=== PATIENT | male | born 1970 | race Caucasian/White ===

== ENCOUNTER 2025-03-11 12:52 | Outpatient (OUT) | payer BC, SELFPAY ==
--- OUTSIDE RECORDS SUMMARY | 2025-03-03 09:12 | XMS_ITS | Continuity of Care Document ---
Author Organization [facility] Address [address] [place] [address] Phone Care Team Providers [employer] Paraprofessional Name Role Phone Melissa Neil DO Primary Care Provider [phone] Melissa Neil DO Attending Provider Jerry Lam MD Attending Provider [phone] Jg Higgins MD Emergency Provider Lex Cristina MD Admit Provider [phone] Sadia Shahid MD Other Provider Lesley Castillo Attending Provider [phone] Lesley Castillo Other Provider Care Teams Patient Care Team Team Status: Active Member Role/Relationship Status Dates Melissa Neil DO Primary Care Provider Active Visit Care Team Team Status: Inactive Member Role/Relationship Status Dates Melissa Neil DO Primary Care Provider Active S tart: January 17, 2025 End: January 17, 2025Jepatricia Neil DOAttending ProviderActiveStart: January 17, 2025 End: January 17, 2025 Visit Care Team Team Status: Inactive Member Role/Relationship Status Dates Melissa Neil DO Primary Care Provider Active S tart: February 26, 2025 End: February 26, 2025Melissa Neil DOAttending ProviderActiveStart: February 26, 2025 End: February 26, 2025 Visit Care Team Team Status: Inactive Member Role/Relationship Status Dates Jerry Lam MD Attending Provider Active Start: February 28, 2025 End: February 28, 2025[facility] Care ProviderActiveStart: February 28, 2025 End: February 28, 2025 Patient Care Team Team Status: Active Member Role/Relationship Status Dates Melissa Neil DO Primary Care Provider Active S tart: February 28, 2025 Jg Higgins MDEmergency ProviderActiveStart: February 28, 2025 Lex Cristina MDAdmit ProviderActiveStart: February 28, 2025 Sadia Shahid MDOther ProviderActiveStart: February 28, 2025 Charli Castillo MDAttending ProviderActiveStart: February 28, 2025 Jessica Shearer ProviderActiveStart: February 28, 2025 Chief Complaint and Reason for Visit Chief Complaint Admit Date 3M January 17, 2025 2: 26pm 1M February 26, 2025 2:53pm 6 mo flora 930a February 28, 2025 8:50am sent by February 28, 2025 9:17pm Reason for Visit Admit Date Essential (primary) hypertension January 17, 2025 2:26pm Inguinal hernia January 17, 2025 2: 26pm Insomnia, unspecified January 17, 2025 2:26pm Nausea and vomiting January 17, 2025 2: 26pm Opioid abuse, uncomplicated January 17, 2025 2:26pm PAD (peripheral artery disease) January 17, 2025 2:26pm Tobacco use January 17, 2025 2: 26pm DONAVON (acute kidney injury) February 26, 2025 2:53pm Anemia February 26, 2025 2:53pm Essential (primary) hypertension Novembe r 2024 2:53pm Gastritis February 26, 2025 2:53pm Insomnia, unspecified February 26 2:53pm Opioid abuse, uncomplicated February 2:53pm PAD (peripheral artery disease) February 26, 2025 2:53pm PAD (peripheral artery disease) February 28, 2025 8:50am Acute renal failure February 28, 2025 9:17pm DONAVON (acute kidney injury) February 28, 2025 9:17pm Anemia February 28, 2025 9:17pm Essential (primary) hypertension Novembe r 2024 9:17pm Hyponatremia February 28, 2025 9:17pm Metabolic acidosis February 28, 2025 9:17pm Opioid abuse, uncomplicated February 9:17pm PAD (peripheral artery disease) February 28, 2025 9:17pm Tobacco use February 28, 2025 9:17pm Reason for Referral Type Reason(s) Provider Provider Contact Information P rovider Address Start Date in 3 to 5 days for repeat blood workCall office on Tuesday to schedule follow-up with your Primary Care Provider within 3-5 days of discharge.Mario Polo Phone: [phone] [facility] [id number] 3 to 5 days for repeat blood workToni Shearer Phone: [phone] [place] [address] Allergies, Adverse Reactions, Alerts Allergen Type Severity Reaction Last Updated Verified Status No Known Allergies Allergy Unknown February 28, 2025 5:46pmYesActive Social History Smoking Status Status Start Date End Date Date of Observa tion Smokes tobacco daily (finding) March 01, 2025 9:29am Observation Status Observation Response Date of Response Legal Sex [facility] (finding) [facility] Family History Relationship Condition Age at Onset Recorded Date/T mamta mother Myocardial infarction Unknown Rheumatoid arthritisUnknownfatherGlaucomaUnknownbrotherHistory of heart surgery UnknownCerebrovascular accident (CVA)UnknownMyocardial infarctionUnknown HypertensionUnknown Problems Active Problems Problem Diagnosis/Recorded Date Onset Date Status C omments DONAVON (acute kidney injury) February 26, 2025 3:20pm Unkno wn Active Encounter for screening for depressionApruary 2024 9:55amUnknownActive Insomnia, unspecifiedJanuary 2024 9:55amUnknownActiveAcute recurrent maxillary sinusitisJanuary 2024 9:55amFebruary 2018ActiveHistory of fallingJanuary 2024 9:55amUnknownActiveOpioid abuse, uncomplicatedApruary 2024 9:55amUnknownActiveLow back pain, unspecifiedJanuary 2024 9:55amUnknownActiveNoninfective gastroenteritis and colitis, unspecifiedJanuary 2024 9:55amUnknownActiveAcute renal failureNovember 2024 8:46pm UnknownActiveAnemiaNovember 2024 3:19pmUnknownActiveAnxiety disorder, unspecifiedJanuary 2024 9:55amJanuary 2015ActiveEncounter for therapeutic drug level monitoringJanuary 2024 9:55amUnknownActiveGastritis February 26, 2025 3:19pmUnknownActiveHyponatremiaNovember 2024 10:21am UnknownActivePostoperative painFebruary 2024 2:16pmUnknownActive Claudication of left lower extremityJanuary 2024 10:44amUnknownActive Peripheral vascular disease, unspecifiedJanuary 2024 9:55amUnknownActive Essential (primary) hypertensionJanuary 2024 9:55amUnknownActivePAD (peripheral artery disease)May 23, 2024 1:46pmUnknownActivePain in right kneeJanuary 2024 9:55amUnknownActivePain in right shoulderJanuary 2024 9:55amFebruary 2017ActivePain in left wristJanuary 2024 9:55am UnknownActiveTobacco useJanuary 2024 9:55amApril 2016ActiveMetabolic acidosisNovember 2024 10:22amUnknownActiveNausea and vomitingOctober 2024 2:26pmUnknownActiveInguinal herniaJanuary 2024 11:16amUnknownActive rightInactive/Resolved Problems Problem Diagnosis/Recorded Date Onset Date Status C omments Personal history of (healed) traumatic fracture May 02, 2024 9:55am Unknown Resolved Other chronic painJanuary 2024 9:55amUnknownResolvedClaudication of right lower extremityJanuary 2024 10:44amUnknownResolved Medications Medication Status Dose Units Route Directions Qty Days Refills S tart Date Stop Date End Date Reason(s) Instructions Adherence Morphine (Ms Contin) 15 mg tablet extended release Discontinued 15 MG PO Every 12 hours 12 6 0 [facility] 2024July 25, 2024 9:10amPostoperative pain Other acute postprocedural painClopidogrel 75 mg tabletActive0.ROUTE.HENFYOS502 February 25, 2025 1:34pmTAKE 1 TABLET BY MOUTH EVERY DAYUnknownCholecalciferol (Vitamin D3) (Vitamin D3) 25 mcg (1,000 unit) chgxlsRpxmmy21VFSFPFzhfk morning May 08, 2024 12:00amUnknownIbuprofen 200 mg iovoslMpklgbdmfynt832 - 800MG PODaily as needed for painMay 08, 2024 12:00amNoveer 2024 3:00pm Buprenorphine-Naloxone (Suboxone) 8-2 mg filmActive1.75FILMSUBLINGUALEvery morningMay 08, 2024 12:[address] 1 strip/tab under (each) side of tongue UnknownAtorvastatin 40 mg SinbfaSuhyaw49EWROGtpzq oezkpbq95236Ehrctrzt 2024 12:00amUnknownClopidogrel 75 mg KqyrjuJxupylxseijt26UZWAQxdhx27787Uxggjocz 2024 12:00amNovember 2024 1:34pmAspirin 81 mg Tablet,Delayed Release (Dr/Ec)Zfrsci41PUDRQkbdl89157Pvfbnnml 2024 12:00amUnknownDocusate Sodium 100 mg EwluaaxMakzlsytkxzw141MPPANcjqq pvpco87045Kbnkjnpp 2024 12:00am June 13, 2024 11:28amMorphine (Ms Contin) 15 mg tablet extended release Rjjkxamnefpl23WRXAKyotk 12 kvkle9993Liljcttn 2024[facility] 2024 11:28am Postoperative pain Other acute postprocedural painAcamprosate 333 mg tablet,delayed release (DR/EC) Gecodkujzbpz830MJUEHnxnz times dailyFebruary 28, 2025 12:00amNoveer 2024 9:41pmTrazodone 50 mg fstoxpAsdjze12ZLWLMqqryhlUdjklzjc 20th, 2025 12:00am UnknownLisinopril-Hydrochlorothiazide 10-12.5 mg xsoaplMjviackrqmbn6RNDLJKsxmj morningJanuary 2024 12:00amNovember 2024 12:17pmOxycodone (Roxicodone) 15 mg sibgahNsajkagmohme14NFBHUeycz daily as needed for zxdf5522 June 18pril 2024 9:10amPostoperative pain Other acute postprocedural painTrazodone 50 mg vfnptuHwwaeblhvfrd27IYBCLkjys at bedtime as neededSept2024 11:00pmNov2024 6:43pm Gabapentin 100 mg bzsrjinHxrwjl998ZCXCUgobx at gzixrnw745Bgnvudh 8th, 2025 11:00pmUnknownOndansetron 4 mg tablet,gpetxathrpjomxAahmlppcjffv6CSANOxvqh 8 hours as needed for nausea and fzuhizcx273Ozdzzvr 8th, 2025 11:00pmFebruary 26, 2025 3:01pmPantoprazole (Protonix) 40 mg tablet,delayed release (DR/EC) Pbzffbagqhrv60JAQHKesvh76354Fuokxyw 8th, 2025 11:00pmFebruary 26, 2025 3:01pm Pantoprazole (Protonix) 40 mg tablet,delayed release (DR/EC)Ckufqn59GNTYZvwha unggn1906Frzxoqmu2024 12:00amUnknown Medical Equipment Device Date Implanted Device Details Synthetic vascular graft May 22, 2024 HOMERO : [id number] Issuing Agency: [facility] Device Id: [id number] Expiration Date: 2028-08-08 Lot Number: [id number] Serial Number: [id number] peripheral artery stent, bare-metalFebruary 2024UDI: ()[id number] Issuing Agency: 1 Device Id: [id number] Expiration Date: 2025-09-25 Serial Number: [id number] peripheral artery stent, bare-metalFebruary 2024UDI: [id number] Issuing Agency: [facility] Device Id: [id number] Expiration Date: 2026-04-11 Serial Number: [id number] Vital Signs Vital Reading Result Reference Range Collection Date/Time Height 70 [in_i] January 17, 2025 1:[address]Zommzi52.[address] [facility] 20[facility] 1:31pmHeart Blkm744 /min 60-100January 17, 2025 1:31pmRespiratory rate20 /ird96-31Uyimvfr 2024 1:31pmOxygen saturation by Pulse uuycwagq17 %95-100[facility]2024 1:31pmBP Jpoqyngt798 mm[Hg]100-140January 17, 2025 1:31pmBP Gaonjdffh87 mm[Hg]60-100 January 17, 2025 1:31pmBMI (Body Mass Index)25.4 kg/k4Lcibnhy 2024 1:31pm Lebhiv67 [in_i]February 26, 2025 2:92caKargea02.73 kg[facility]2024 2:56pmHeart Rate87 /bxu31-090QdadhrdiFebruary 26, 2025 2:56pmRespiratory rate20 /min 12-24February 26, 2025 2:56pmOxygen saturation by Pulse qvdojhhn58 %95-100 February 26, 2025 2:56pmBP Vrlucqbt805 mm[Hg]100-140February 26, 2025 2:56pm BP Mxqhkdzjv61 mm[Hg]60-100February 26, 2025 2:56pmBMI (Body Mass Index)25.5 kg/y2Ggsjkopj2024 2:57kkNvuzrh90 [in_i]February 28, 2025 9:37amWeight 80.00 kgFebruary 28, 2025 9:37amBody Eygfejvaocg78.8 [degF]97.6-99.0February 28, 2025 9:37amHeart Rate98 /bki70-608HfrfgeduFebruary 28, 2025 9:37amRespiratory rate16 /gae30-67Bjjbbjvv2024 9:37amOxygen saturation by Pulse rwcrrgna96 %95-100February 28, 2025 9:37amBP Zchuzbyy85 mm[Hg]100-140February 28, 2025 9:37amBP Ddqdtaesz18 mm[Hg]60-100February 28, 2025 9:37amBMI (Body Mass Index) 25.2 kg/u6EczmkpnaFebruary 28, 2025 9:92viXzuogf99 [in_i]February 28, 2025 10:17pm Ggiuwy33.00 kgMarch 03, 2025 6:00amBody Quwpglpxogh69.2 [degF]97.6-99.0 March 03, 2025 11:58amHeart Rate84 /gzx05-288HwzsylmoMarch 03, 2025 11:58am Respiratory rate20 /syu32-78KwrpocmwMarch 03, 2025 11:58amOxygen saturation by Pulse zoysaenj16 %95-100March 03, 2025 11:58amBP Oycgmswt758 mm[Hg]100-140 March 03, 2025 11:58amBP Duqqzpovc41 mm[Hg]60-100March 03, 2025 11:58am Advance Directives Advance Directive Response Recorded Date/ Time Advance Directives No August 27 12:38pm Insurance Providers Guarantor Subhash Vieira Address [address] [facility] [address]Vszhwty Info.Home Phone: Coverage Status Update:2025 Payer Group Member ID Coverage Type Subscriber Relationship to Subscriber Effective Date Expiration Date Shanna SANON Id: [id number] Dority Id: [id number] [address] [place] [address] Home Phone: Encounters Encounter Location(s) Arrival/Admit Date Discharge/Departure Date Discharge/Departure Disposition Provider(s) Departed Physician/ Provider Office Visit -[facility] [place] [place] January 17, 2025 2:26pm January 17, 2025 3:17pm Discharged to home care or self care (routine discharge) Melissa Neil DO Departed Physician/ Provider Office Visit -[facility] [place] [facility] [place] February 26, 2025 2:53pm February 26, 2025 3:34pm Discharged to home care or self care (routine discharge) Melissa Neil DO Departed Physician/ Provider [facility] February 28, 2025 8:50am February 28, 2025 11:04am Discharged to home care or self care (routine discharge) Jerry Lam MD [facility]-patient / [facility] No vember 2024 9:17pm Charli Castillo MD Recent Diagnosis Onset Date Admit Date Essential (primary) hypertension Unknown January 17, 2025 2:26pm Inguinal hernia Unknown January 17 2:26pm Insomnia, unspecified Unknown January 2:26pm Nausea and vomiting Unknown January 17, 2025 2:26pm Opioid abuse, uncomplicated Unknown Octo brittney 2024 2:26pm PAD (peripheral artery disease) Unknown January 17, 2025 2:26pm Tobacco use July 22, 2016 January 17 2:26pm DONAVON (acute kidney injury) Unknown Novemb er 2024 2:53pm Anemia Unknown February 26, 2 025 2:53pm Essential (primary) hypertension Unknown February 26, 2025 2:53pm Gastritis Unknown February 26, 2 025 2:53pm Insomnia, unspecified Unknown February 092024 2:53pm Opioid abuse, uncomplicated Unknown Nove mber 2024 2:53pm PAD (peripheral artery disease) Unknown February 26, 2025 2:53pm PAD (peripheral artery disease) Unknown February 28, 2025 8:50am Acute renal failure Unknown February 9:17pm DONAVON (acute kidney injury) Unknown [facility] 9[facility]17[facility] Anemia Unknown February 28, 2 025 9:17pm Essential (primary) hypertension Unknown February 28, 2025 9:17pm Hyponatremia Unknown February 28, 2 025 9:17pm Metabolic acidosis Unknown February 9:17pm Opioid abuse, uncomplicated Unknown Nove mber 2024 9:17pm PAD (peripheral artery disease) Unknown February 28, 2025 9:17pm Tobacco use July 22, 2016 February 28, 2025 9:17pm Assessments Diagnosis Onset Date Resolution Status Admit Date Essential (primary) hypertension acuteOctober 2024 2:26pmInguinal herniaacuteOctober 2024 2:26pm Insomnia, unspecifiedacuteOctober 2024 2:26pmNausea and vomitingacute January 17, 2025 2:26pmOpioid abuse, uncomplicatedacuteJanuary 17, 2025 2:26pm PAD (peripheral artery disease)acuteJanuary 17, 2025 2:26pmTobacco useApril 2016acuteOct2024 2:26pmAKI (acute kidney injury)acuteNov2024 2:53pmAnemiaacuteNov2024 2:53pmEssential (primary) hypertensionacuteFebruary 26, 2025 2:53pmGastritisacuteNov2024 2:53pmInsomnia, unspecifiedacuteFebruary 26, 2025 2:53pmOpioid abuse, uncomplicatedacuteFebruary 26, 2025 2:53pmPAD (peripheral artery disease)acute February 26, 2025 2:53pmPAD (peripheral artery disease)acuteFebruary 28, 2025 8:50amAcute renal failureacuteFebruary 28, 2025 9:17pmAKI (acute kidney injury)acuteFebruary 28, 2025 9:17pmAnemiaacuteFebruary 28, 2025 9:17pm Essential (primary) hypertensionacuteFebruary 28, 2025 9:17pmHyponatremiaacute February 28, 2025 9:17pmMetabolic acidosisacuteFebruary 28, 2025 9:17pm Opioid abuse, uncomplicatedacuteFebruary 28, 2025 9:17pmPAD (peripheral artery disease)acuteFebruary 28, 2025 9:17pmTobacco useApril 2016acuteFebruary 28, 2025 9:17pm Plan of Treatment [facility] 11:08amI reviewed the arterial studies surveillance studies today. 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 There is no flow. Patient does have collateral flow to the foot. He does not have critical limb ischemia at this time. This patient is at high risk for any future interventions. I explained to him today. I recommend conservative nonoperative management with risk factor modification smoking cessation and aggressive exercise regimen. He agrees to this. I will see him back in 6 months. I did explain to him that if he develop critical limb ischemia then we would be forced to intervene in order to prevent limb loss. He is aware of this. The patient was also told to go to the ER today by his family physician and nurse practitioner. Apparently they have found anemia. They think he is bleeding from a GI source. He he agrees to go to the ER later on today after he goes and gets his paycheck from work. I agree with this, obviously. Author Melissa Neil [facility] CenterAuthoredOctober 2024 2:32pmcontinue aspirin and plavix and atorvastatin no desire to quit at this time. continue trazodone as needed stable on the lisinopril/hctz currently being managed at [facility]. Doing well and has been on it now 3 years. plans for surgery next month Will place on zofran as needed and daily Protonix; I think it's polypharmacy causing acute gastritis, discussed with him how to take medications; also concerned about acute gastritis with motrin and aspirin and plavix. Please cut down the motrin. Discussed for him to go to ER if every blood in vomit or stool, fevers or pain becomes severe. Start Gabapentin, discussed how to take all meds; go to ER with worsening pain or symptoms. Return to clinic 1 month. Author Melissa Neil [facility] CenterAuthoredNovember 2024 3:42pmtaking statin, plavix and aspirin- follows with Vascular surgery follows at [facility]; has been compliant stable on lisinopril/hctz takes trazodone as needed recheck CBC (last hb 11.3), iron, TIBC, Ferritin, VB12, folate; EGD and possible colonoscopy (referral to GI) Has stopped ibuprofen; still takes aspirin and plavix; will place on protonix 40mg BID; referral to GI for EGD. now with acute anemia; concern for possible bleeding ulcer. recheck BMP after stopping NSAIDs; if still elevated will need urine studies and renal ultrasound. Referral to GI; further work up of DONAVON and anemia; placed on protonix BID; return to clinic 1 month Future Tests Future scheduled test information is unavailable Pending Tests Test Name Ordered Date Scheduled Date Renal Function Panel March 03, 2025 12:20pm 5 Days Renal Function Panel March 01, 2025 8:34am March 04, 2025 5:00am Renal Function Panel March 01, 2025 8:34am March 05, 2025 5:00am Future Visits Future appointment information is unavailable Future Procedures Procedure Name Ordered Date Scheduled Date Admit Status Order February 28, 2025 9:17pm No vember 2024 9:17pm Hemogram CBC Without Diff March 01, 2025 8: 34am March 04, 2025 5:00am Code Status February 28, 2025 10:50pm Novpadmini mb 2024 10:50pm Discharge Order March 03, 2025 12:13pm Janak webster 2024 12:13pm Consult to Nephrology February 28, 2025 10:50p m February 28, 2025 10:50pm Vitamin B12 February 26, 2025 3:30pm [facility] 3:23pmComplete Blood Count Auto Diff February 26, 2025 3:23pmIron and TIBC ProfileNovb[facility] 2024 3:27pm FerritinNovbanner [facility] medical [facility] 2024 3:27pmFolateNovbanner [facility] medical [facility] 2024 3:30pm Future Medications Future medication information is unavailable Patient Instructions Instruction Admit Date Know your Meds February 28, 2025 9:17pm
--- OUTSIDE RECORDS SUMMARY | 2025-03-11 13:00 | XMS_ITS | Clinical Summary ---
Author Organization [facility] Address [address] [place] [address] Care Team Providers Care Spindle Tester Name Role Phone Hermilo Borrero MD Primary Care Provider [phone] Yessi Luna FRANCHISE CONSULTANT Unavailable [phone] Allergies No known active allergies Medications MedicationSigDispense QuantityRefillsLast FilledStart DateEnd DateStatus Buprenorphine HCl-Naloxone HCl (Suboxone) 8-2 MG SL film 5Active traZODone (Desyrel) 50 MG tablet Take 50-100 mg by mouth at ownsunr66/03/2024Active nicotine (Nicoderm, Step 3) 7 MG/24HR patch Indications:Nicotine dependence, cigarettes, uncomplicatedPlace 1 patch over 24 hours on the skin 1 (one) time each day at the same time 14 patch 5Active atorvastatin (Lipitor) 40 MG tablet Take 40 mg by mouth in the iqhrcbo41/12/2025Active clopidogrel (Plavix) 75 MG tablet Take 75 mg by mouth Daily5Active nicotine (Nicoderm, Step 2) 14 MG/24HR patch Indications:Nicotine dependence, cigarettes, uncomplicatedPlace 1 patch over 24 hours on the skin 1 (one) time each day at the same time 30 patch 5Active lisinopril-hydroCHLOROthiazide 10-12.5 MG tablet Indications:Primary hypertensionTAKE 1 TABLET BY MOUTH EVERY DAY 90 tablet 5Active Active Problems ProblemNoted DateDiagnosed DatePAD (peripheral artery disease)07/16/2024 Assessment & Plan (10/22/2024 6:47 PM EDT): On statin, plavix Continue with vascular Assessment & Plan (07/16/2024 5:30 PM EDT): On statin, plavix Substance use07/16/2024 Assessment & Plan (07/16/2024 7:39 AM EDT): Currently taking suboxone Cont with [facility] Cigarette nicotine dependence without nmhssaqopqpo09/07/2025 Assessment & Plan (07/16/2024 4:05 PM EDT): Prior to vascular surgery 0.5-1ppd, now is doing 4 cigs daily Patch is 14mg patch Right inguinal auurua0904/25/2024 Assessment & Plan (10/22/2024 6:48 PM EDT): Referred to Gen Surgeon Assessment & Plan (07/16/2024 5:34 PM EDT): 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 He is not having a lot of hernia pain, he is having normal bowel movements and urination At this time we will monitor, no consult at this time He is aware of red flag sxs to monitor Abnormal ultrasound of gafwak6204/25/2024Iliac artery occlusion, right04/25/2024 Primary jgvtpwkfelay30/07/2025 Assessment & Plan (10/22/2024 6:47 PM EDT): Please check blood pressure daily and record DASH diet Limit caffeine Take medication as directed Contact office if chest pain, pressure, dizziness, shortness of breath, swelling legs Recommend slow position changes Current meds: lisinopril-hydrochlorothiazide Assessment & Plan (07/16/2024 5:30 PM EDT): Please check blood pressure daily and record DASH diet Limit caffeine Take medication as directed Contact office if chest pain, pressure, dizziness, shortness of breath, swelling legs Recommend slow position changes Current meds: lisinopril-hydrochlorothiazide Assessment & Plan (04/17/2024 4:06 PM EST): Follows at [facility] there placed pt on Losartan- hydrochlorothiazide for elevated BP readings for several months. BP in office today 116/66. Pt reports he has been checking BP at home since initiating medications.Averages have been less than 130/80. Pt denies any adverse reactions. Cough, swelling in legs or feet. Will order labs today, Gave patient BP log and advised to continue checking BP at home and bring BPlog back to next OV. Encounter for wellness examination in adult04/17/2024 Assessment & Plan (04/17/2024 4:06 PM EST): I have reviewed Ht/Wt/BMI, I have reviewed recommended vaccines for patient's age, as well as all recommended screenings I have reviewed available care everywhere notes as well. I have recommended eating a balanced diet,as well as activity as chronic conditions allow It is recommended that the patient have a yearly eye exam, as well as twice a year dental exams Fu in this office for wellness on a yearly basis Diet: Eat three meals per day. Breakfast, lunch, and dinner. Avoid snacking. Avoid eating after 5/6pm. Daily protein GOAL 35% of your intake; 30g per meal. Daily calorie GOAL 1,800-2,000 per day. Consider tracking your food intake on MyFtinessPal or LoseIt Water: Increase water intake; GOAL 64-80oz of water per day. Exercise: Increase activity. GOAL 30 minutes, 5 days per week. START SLOW. Start with 5 minutes, 5 days per week. Then increase to 10 days, 5 days per week. Continue to increase until you reach the goal. Increase steps; GOAL 10,000 steps per day. Be sure to get adequate sleep; GOAL 6-8 hours of sleep per night. Mmmokme2204/17/2024Screening for malignant neoplasm of colon04/17/2024 Assessment & Plan (07/16/2024 4:28 PM EDT): Colon cancer screening options were discussed with patient, as well as why colon cancer screening is indicated. Options are Colonoscopy: direct visualization, every 10 years (unless indicated more frequently), risks and benefits were discussed Cologuard: every 3 years, risks and benefits were discussed , contraindications were discussed (family hx of colon cancer, colon polyps) Patient has elected to: colguard Resolved Problems ProblemNoted DateDiagnosed DateResolved DateScreening for hyperlipidemia Screening for diabetes [id number] Family History Medical HistoryRelationNameCommentsHypertensionMotherMomRelationNameStatus CommentsMotherMomAlive Social History Tobacco UseTypesPacks/DayYears UsedDateSmoking Tobacco: Every DofSlmzevpvsf531 Smokeless Tobacco: Never Tobacco Cessation:Ready to Q uit: Not Asked; Counseling Given: Not Answered Alcohol UseStandard Drinks/WeekCommentsYes0 (1 standard drink = 0.6 oz pure alcohol)Sex and Gender InformationValueDate RecordedSex Assigned at BirthNot on fileLegal BlnVipj8006/23/2022 6:43 PM EDTGender IdentityNot on fileSexual OrientationNot on file Last Filed Vital Signs Vital SignReadingTime TakenCommentsBlood Zxtulkpb762/7807 2:53 PM EDT Envdh740010/22/2024 2:53 PM HFPCmavwxpyuje52.6 ??C (97.8 ??F)10/22/2024 2:53 PM EDTRespiratory Iehp291610/22/2024 2:53 PM EDTOxygen Pjyctygmwg30%10/22/2024 2:53 PM EDTInhaled Oxygen Concentration--Klhcni57 kg (172 lb)10/22/2024 2:53 PM EDT Ymkmqf249.8 cm (5' 10 )09/06/2024 3:12 PM EDTBody Mass Index24.68009/06/2024 3:12 PM EDT Plan of Treatment Not on file Insurance Care Teams Team MemberRelationshipSpecialtyStart DateEnd Date Hermilo Borrero MD [address] [place] [address] PCP - GeneralFamily Bvoddzdm58/4/24 Yessi Luna NP Nurse Practitionermi Jhqeqnef12/4/24
[2025-03-11 13:46] LABS: Albumin Level 3.0 g/dL (3.4-5.0); Anion Gap 14.8; Blood Urea Nitrogen 18.0 mg/dL (7.0-18.0); Calcium 9.0 mg/dL (8.5-10.1); Carbon Dioxide 21.1 mmol/L (21.0-32.0); Chloride 106 mmol/L (98-107); Estimated GFR (African America 57 (>=60 mL/min/1.73m^2); Estimated GFR (Non-African Ame 47 (>=60 mL/min/1.73m^2); Glucose 119 mg/dL (74-106); Potassium 3.9 mmol/L (3.5-5.1); Sodium 138 mmol/L (136-145)
== END 2025-03-11 12:53 | disposition home or self-care (01) ==
LOC: LAB 12:57
PROVIDERS: PCP Family Medicine; Visit Provider Internal Medicine
DX: N17.9 Acute kidney failure, unspecified (principal)
CPT/HCPCS: 36415; 80069

== ENCOUNTER 2025-04-02 14:13 | Outpatient (OUT) | payer BC, SELFPAY ==
--- OUTSIDE RECORDS SUMMARY | 2025-03-19 10:11 | XMS_ITS | Continuity of Care Document ---
Author Organization [facility] Address [address] [place] [address] Phone Care Team Providers Care Song Writer Name Role Phone Melissa Neil DO Primary Care Provider Melissa Neil DO Attending Provider [phone] Jerry Lam MD Attending Provider [phone] Jg Higgins MD Emergency Provider Lex Cristina MD Admit Provider Sadia Shahid MD Other Provider Lesley Castillo Attending Provider [phone] Lesley Castillo Other Provider Funmi Elliott Attending Provider Unavailable Care Teams Patient Care Team Team Status: [...] Start: February 28, 2025 End: February 28, 2025Jepatricia Neil , DOPrimary Care ProviderActiveStart: February 28, 2025 End: February 28, 2025 Visit Care Team Team Status: Active Member Role/Relationship Status Dates Melissa Jolynn , DO Primary Care Provider Active S tart: February 28, 2025 Jg Higgins MDEmergency ProviderActiveStart: February 28, 2025 Lex Cristina MDAdmit ProviderActiveStart: February 28, 2025 Sadia Shahid MDOther ProviderActiveStart: February 28, 2025 Cecilia Shearer ProviderActiveStart: February 28, 2025 Jessica Shearer ProviderActiveStart: February 28, 2025 Visit Care Team Team Status: Active Member Role/Relationship Status Dates Melissapatricia Neil , DO Primary Care Provider Active S tart: March 05, 2025 Funmi Humphries ProviderActiveStart: March 05, 2025 Visit Care Team Team Status: Active Member Role/Relationship Status Dates Melissa Jolynn , DO Primary Care Provider Active S tart: March 11, 2025 Cecilia Shearer ProviderActiveStart: March 11, 2025 Visit Care Team Team Status: Inactive Member Role/Relationship Status Dates Melissa Jolynn , DO Primary Care Provider Active S tart: March 14, 2025 End: March 14bdian Castillo MDAttending ProviderActiveStart: March 14, 2025 End: March 14, 2025 Patient Care Team Team Status: Inactive Member Role/Relationship Status Dates Melissa Jolynn , DO Primary Care Provider Active S tart: March 19, 2025 End: March 19, 2025Melissa Jolynn , DOAttending ProviderActiveStart: March 19, 2025 End: March 19, 2025 Chief Complaint and Reason for Visit Chief Complaint Admit Date 3M January 17, 2025 2: 26pm 1M February 26, 2025 2:53pm 6 mo flora 930a February 28, 2025 8:50am sent by February 28, 2025 9:17pm Amb Documentation March 05, 2025 1:00pm Renal F/U [facility] March 14, 2025 1 0:54am [facility] f/u-renal failure Dec ember 2024 2:30pm Reason for Visit Admit Date Essential (primary) [...] 26, 2025 2:53pm Essential (primary) hypertension Novembe 2024 2:53pm Gastritis February 26, 2025 2:53pm Insomnia, unspecified February 26 2:53pm Opioid abuse, uncomplicated February 2:53pm PAD (peripheral artery disease) February 26, 2025 2:53pm PAD (peripheral artery disease) February 28, 2025 8:50am DONAVON (acute kidney injury) February 28, 2025 9:17pm Anemia February 28, 2025 9:17pm Essential (primary) hypertension Novembe 2024 9:17pm Opioid abuse, uncomplicated February 9:17pm PAD (peripheral artery disease) February 28, 2025 9:17pm Tobacco use February 28, 2025 9:17pm Acute renal failure February 28, 2025 9:17pm Hyponatremia February 28, 2025 9:17pm Metabolic acidosis February 28, 2025 9:17pm B12 deficiency March 14, 2025 1 0:54am Essential (primary) hypertension Decembe r 2024 10:54am Iron deficiency anemia March 14 10:54am PAD (peripheral artery disease) March 14, 2025 10:54am Post-renal acute kidney injury March 14, 2025 10:54am B12 deficiency March 19, 2025 2 :30pm Inguinal hernia March 19, 2025 2 :30pm Iron deficiency anemia March 19 2:30pm Opioid abuse, uncomplicated March 2:30pm PAD (peripheral artery disease) March 19, 2025 2:30pm Post-renal acute kidney injury March 19, 2025 2:30pm Reason for Referral Type Reason(s) Provider Provider Contact Information Carri rand Address Start Date in 3 to 5 days for repeat blood workCall office on Tuesday to schedule follow-up with your Primary Care Provider within 3-5 days of discharge.Melissa Neil Mario Phone: [phone] [facility] [phone] 3 to 5 days for repeat blood workToni Shearer Phone: [phone] [place] [address] Allergies, Adverse Reactions, Alerts Allergen Type Severity Reaction Last Updated Verified Status No Known Allergies Allergy Unknown March 19, 2025 2:33pmYesActive Social History Smoking Status Status Start Date End Date Date of Observa tion Smokes tobacco daily (finding) March 14, 2025 11:00am Observation Status Observation Response Date of Response Legal Sex [facility] (finding) [facility] 1970 Family History Relationship Condition Age at Onset Recorded Date/T mamta mother Myocardial infarction Unknown Rheumatoid arthritisUnknownfatherGlaucomaUnknownbrotherHistory of heart surgery UnknownCerebrovascular accident (CVA)UnknownMyocardial infarctionUnknown HypertensionUnknown Problems Active Problems Problem Diagnosis/Recorded Date Onset Date Status C omments DONAVON (acute kidney injury) February 26, 2025 3:20pm Unkno wn Active Encounter for screening for depressionJanuary 2024 9:55amUnknownActive Post-renal acute kidney injuryDecember 2024 11:15amUnknownActiveInsomnia, unspecifiedJanuary 2024 9:55amUnknownActiveAcute recurrent maxillary sinusitisJanuary 2024 9:55amFebruary 2018ActiveHistory of falling May 02, 2024 9:55amUnknownActiveOpioid abuse, uncomplicatedJanuary 2024 9:55amUnknownActiveLow back pain, unspecifiedJanuary 2024 9:55am UnknownActiveNoninfective gastroenteritis and colitis, unspecifiedJanuary 2024 9:80wiPmhuzcfWjxabgJ36 deficiencyDecember 2024 11:15amUnknownActive AnemiaNovember 2024 3:19pmUnknownActiveAnxiety disorder, unspecified May 02, 2024 9:55amJanuary 2015ActiveEncounter for therapeutic drug level monitoringJanuary 2024 9:55amUnknownActiveGastritisNovember 2024 3:19pmUnknownActivePostoperative painFebruary 2024 2:16pmUnknown ActiveClaudication of left lower extremityJanuary 2024 10:44amUnknown ActivePeripheral vascular disease, unspecifiedJanuary 2024 9:55amUnknown ActiveEssential (primary) hypertensionJanuary 2024 9:55amUnknownActiveIron deficiency anemiaDecember 2024 11:15amUnknownActivePAD (peripheral artery disease)May 23, 2024 1:46pmUnknownActivePain in right kneeJanuary 2024 9:55amUnknownActivePain in right shoulderJanuary 2024 9:55amFebruary 2017ActivePain in left wristJanuary 2024 9:55amUnknownActiveTobacco useJanuary 2024 9:55amApril 2016ActiveNausea and vomitingOctober 2024 2:26pmUnknownActiveInguinal herniaJanuary 2024 11:16amUnknown ActiverightInactive/Resolved Problems Problem Diagnosis/Recorded Date Onset Date Status C omments Personal history of (healed) traumatic fracture May 02, 2024 9:55am Unknown Resolved Acute renal failureNovember 2024 8:46pmUnknownResolvedHyponatremiaNovember 2024 10:21amUnknownResolvedOther chronic painJanuary 2024 9:55am UnknownResolvedClaudication of right lower extremityJanuary 2024 10:44am UnknownResolvedMetabolic acidosisNovember 2024 10:22amUnknownResolved Medications Medication Status Dose Units Route Directions Qty Days Refills S tart Date Stop Date End Date Reason(s) Instructions Adherence Morphine (Ms Contin) 15 mg tablet extended release Discontinued 15 MG PO Every 12 hours 12 [address] [facility] 2024July 25, 2024 9:10amPostoperative pain Other acute postprocedural painClopidogrel 75 mg tabletActive0.ROUTE.QJGEYGM491 February 25, 2025 1:34pmTAKE 1 TABLET BY MOUTH EVERY DAYComplies with drug therapyHydrochlorothiazide 12.5 mg vobotpEpkcoxuszkfi15.9FWYFTuoeb088Lksavqzu 26th, 2025 12:00amDececobre [facility] 2024 2:34pmOn Hold: no edemaPotassium Chloride 20 mEq tablet extended jfnkfhuYpbsukksjbhe44COAVCReann538Hfevturu 26th, 2025 12:00amDececobre [facility] 2024 2:35pmOn Hold: NoneCholecalciferol (Vitamin D3) (Vitamin D3) 25 mcg (1,000 unit) mxvloiWteqtu83UQPBVSniqr morningJanuary 2024 12:00amComplies with drug therapyIbuprofen 200 mg lzomplYfqazrvfykdk767 - 800MGPODaily as needed for painMay 08, 2024 12:00amNoveer 2024 3:00pmBuprenorphine-Naloxone (Suboxone) 8-2 mg filmActive1.75FILMSUBLINGUALEvery morningApruary 2024 [address] 1 strip/tab under (each) side of tongue Complies with drug therapyAtorvastatin 40 mg UthxafEnibcx35FSAMTaktk icyrkjc6532 2February 2024 12:00amComplies with drug therapyClopidogrel 75 mg Tablet Prqfkvgmroqa06RTKIZkskh61753Zjuvcvzz 2024 12:00amNovember 2024 1:34pmAspirin 81 mg Tablet,Delayed Release (Dr/Ec)Bjwthi56XTVKOadxv75084Hpcyldbs 2024 12:00amComplies with drug therapyDocusate Sodium 100 mg Capsule Lwvxrnsyzoii507WGWELfpqu yrxsk97156Mqvvquqc 2024 12:00amMarch 2024 11:28amMorphine (Ms Contin) 15 mg tablet extended vtvrkxkXxjqszergcaq54JHNGAlygs 12 knvmk2579Anphdbry 2024March 2024 11:28amPostoperative pain Other acute postprocedural painAcamprosate 333 mg tablet,delayed release (DR/EC) Lbxpfcjratpy485OMSZZmiwn times dailyNov2024 12:00amNovember 2024 9:41pmTrazodone 50 mg njdwbnFcrngnducrbw22QPKRPvabkxnIcsvxson 20th, 2025 12:00amDecember 2024 11:00amTrazodone 50 mg llwrvrBmwtvf21SHTEKpnctvi as neededDe2024 11:00amComplies with drug therapyLisinopril- Hydrochlorothiazide 10-12.5 mg gcxtowIkjsmlfdwapx3ORRWDOoeej morningJanuary 2024 12:00amNoveer 2024 12:17pmOxycodone (Roxicodone) 15 mg tablet Cfcjobisknjh45RZVSLtxoo daily as needed for ixgs7325Bemyz pril 2024 9:10amPostoperative pain Other acute postprocedural painTrazodone 50 mg jomiahFcdmqoinzato22JNNBRrfzy at bedtime as neededSept2024 11:00pmNov2024 6:43pm Gabapentin 100 mg sdwqewyIvulubyxfaio537SOALLqbiy at xkferpq058Phmpogf 8th, 2025 11:00pmD[facility] 2024 11:00amOndansetron 4 mg tablet,disintegrating Tjrzaxoyofsl8KYMQHlzri 8 hours as needed for nausea and tynkmmnw059Qtmebpy 8th, 2025 11:00pmFebruary 26, 2025 3:01pmPantoprazole (Protonix) 40 mg tablet,delayed release (DR/EC)Oeiuvwapayqk34ZFXREakyq47836Cxqaowr 8th, 2025 11:00pmNov2024 3:01pmFerrous Sulfate (Feosol) 325 mg (65 mg iron) jdfzauWmrmpk660VXSE.qodDeceer 2024 12:00amComplies with drug therapy Mecobalamin (Vitamin B12) 1,000 mcg tablet,vqhwtgyoCvktjv6886HGSLMIuibnExfrvqrq 9th, 2025 12:00amComplies with drug therapyCarvedilol (Coreg) 3.125 mg tablet Active3.125MGPOTwice gpstt16815Fyhcsoka 9th, 2025 12:00ammust administer with a meal/foodComplies with drug therapyGabapentin 100 mg pdnvrwhSaumyb296BIYTTbriw at bedtime as neededMarch 14, 2025 10:59amComplies with drug therapy Pantoprazole (Protonix) 40 mg tablet,delayed release (DR/EC)Ilurla96MOGFJnpij essaz9561Kvoxtkrs 2024 12:00amComplies with drug therapy Medical Equipment Device Date Implanted Device Details Synthetic vascular graft May 22, 2024 HOMERO : ()[id number] Multiple peripheral artery s tent, bare-metal May 22, 2024 HOMERO: ()[id number] [id number] Multiple peripheral artery s tent, bare-metal May 22, 2024 HOMERO: ()[id number] [id number] Relevant Diagnostic Tests and/or Laboratory Data Laboratory Results Test Collection Date/Time Result Date/Time Result Interpretation Reference Range Result Comment Performing Site Anion Gap March 11, 2025 1:28pm March 11, 2025 1: 28pm 14.8 Albumince2024 1:28pmDecemb2024 1:28pm3.0 g/dLBelow low normal3.4-5.0BUN/Creatinine RatioMarch 11, 2025 1:28pmDecemb2024 1:28pm11.5Blood Urea Nitrogence2024 1:28pmDecemb2024 1:28pm 18.0 mg/dL7.0-18.0Calcium LevelDece2024 1:28pmDecemb2024 1:28pm9.0 mg/dL8.5-10.1Chloride LevelDeceer 2024 1:28pmDecember 2024 1:34vg594 mmol/E60-028Asmqzv Dioxide LevelDece2024 1:28pmDecember 2024 1:28pm21.1 mmol/L21.0-32.0CreatinineDece2024 1:28pmDecember 2024 1:28pm1.56 mg/dLAbove high normal0.70-1.30Estimated GFR () March 11, 2025 1:28pmDecemb2024 1:57dk09Jrdia low normal>=60 mL/min/1.73m 2Estimated GFR (Non- AmericanDe2024 1:28pm March 11, 2025 1:16gv67Mmegm low normal>=60 mL/min/1.73m 2Glucose Level March 11, 2025 1:28pmDecemb2024 1:29me827 mg/dLAbove high normal 74-106Potassium LevelDece2024 1:28pmDecemb2024 1:28pm3.9 mmol/L3.5-5.1Sodium LevelDece2024 1:28pmDecember 2024 1:01kl387 mmol/J022-543Yhnfminmtv Levelm[facility]2024 1:28pmDecemb2024 1:28pm 3.3 mg/dL2.6-4.7 Vital Signs Vital Reading Result Reference Range Collection Date/Time Height 70 [in_i] January 17, 2025 1:45ktCcfmgt46.28 kgOct2024 1:31pmHeart Qeav271 /min 60-100January 17, 2025 1:31pmRespiratory rate20 /pok74-93WwuyvccJanuary 17, 2025 1:31pmOxygen saturation by Pulse mnaemzdf86 %95-100January 17, 2025 1:31pmBP Lhywtyct799 mm[Hg]100-140January 17, 2025 1:31pmBP Wwmpyywnp81 mm[Hg]60-100 January 17, 2025 1:31pmBMI (Body Mass Index)25.4 kg/b9Suisrrk 2024 1:31pm Boozan54 [in_i]February 26, 2025 2:97cjVaoqcn37.73 kgUofl [facility] 2024 2:56pmHeart Rate87 /afz25-911AopegxffFebruary 26, 2025 2:56pmRespiratory rate20 /min 12-24February 26, 2025 2:56pmOxygen saturation by Pulse ypfcuuwa77 %95-100 February 26, 2025 2:56pmBP Liribgri218 mm[Hg]100-140February 26, 2025 2:56pm BP Eszwzbxsc23 mm[Hg]60-100February 26, 2025 2:56pmBMI (Body Mass Index)25.5 kg/t5Xfmkehis 2024 2:48phStkrqd30 [in_i]February 28, 2025 9:37amWeight 80.00 kgAt[facility]2024 9:37amBody Zalflvnrbfb75.8 [degF]97.6-99.0February 28, 2025 9:37amHeart Rate98 /crh64-622LqjtvahhFebruary 28, 2025 9:37amRespiratory rate16 /mcx95-38BgfezzmuFebruary 28, 2025 9:37amOxygen saturation by Pulse aehfopzp84 %-100February 28, 2025 9:37amBP Fatuhyse85 mm[Hg]100-140February 28, 2025 9:37amBP Gkuvvdnuh44 mm[Hg]60-100February 28, 2025 9:37amBMI (Body Mass Index) 25.2 kg/g0LbxjbfgnFebruary 28, 2025 9:01fgOhqutl94 [in_i]February 28, 2025 10:17pm Otphbl91.00 kgUofl [facility] 2024 6:00amBody Cwqlclcdqbp18.2 [degF]97.6-99.0 March 03, 2025 11:58amHeart Rate84 /eup46-234OkiblgdjMarch 03, 2025 11:58am Respiratory rate20 /zvm53-77RjbwdepuMarch 03, 2025 11:58amOxygen saturation by Pulse pmyvmrow49 %95-100March 03, 2025 11:58amBP Lxljakee838 mm[Hg]100-140 March 03, 2025 11:58amBP Sksdpmqap56 mm[Hg]60-100November 2024 11:68lpWdiyeg76 [in_i]March 14, 2025 10:17xzCmedxb54.00 kgDecember 2024 10:58amHeart Rate91 /gfp72-693Zcmlegnk 2024 10:58amRespiratory rate16 /min 12-24December 2024 10:58amOxygen saturation by Pulse pjfqsfip66 %95-100 March 14, 2025 10:58amBP Meciugjp016 mm[Hg]100-140December 2024 10:58am BP Pyvffyklw76 mm[Hg]60-100December 2024 10:58amBMI (Body Mass Index)26.2 kg/q1Wfgwzjeh 2024 10:39wzEfkcon23 [in_i]March 19, 2025 2:32pmWeight 85.72 kgDecember 2024 2:32pmHeart Rate98 /cwq30-023Ovcvekbr 2024 2:32pmRespiratory rate16 /uxr42-23Plitwihx 2024 2:32pmOxygen saturation by Pulse bxlvdgup70 %95-100cember 2024 2:32pmBP Bbtxktez565 mm[Hg]100-140 March 19, 2025 2:32pmBP Vgeximlyp45 mm[Hg]60-100December 2024 2:32pmBMI (Body Mass Index)27.1 kg/i0Ulwxnvgo 2024 2:32pm Advance Directives Advance Directive Response Recorded Date/ Time Advance Directives No August 27 12:38pm Insurance Providers Guarantor Subhash Vieira [address] [facility] [address]Yynrfem Info.Home Phone: Coverage Status Update:2025 Payer Group Member ID Coverage Type Subscriber Relationship to Subscriber Effective Date Expiration Date Shanna SANON Id: [id number] Dority Id: [id number] [address] [place] [address] Home Phone: Encounters Encounter Location(s) Arrival/Admit Date Discharge/Departure Date Discharge/Departure Disposition Provider(s) Departed Physician/ Provider Office Visit -[facility] [place] January 17, 2025 2:26pm January 17, 2025 3:17pm Discharged to home care or self care (routine discharge) Melissa Neil DO Departed Physician/ Provider Office Visit -[facility] [place] February 26, 2025 2:53pm February 26, 2025 3:34pm Discharged to home care or self care (routine discharge) Melissa Neil DO Departed Physician/ Provider Office Visit -[facility] February 28, 2025 8:50am February 28, 2025 11:04am Discharged to home care or self care (routine discharge) Jerry Lam MD Non-patient / Non-visit -[facility] 2024 9:17pm Charli Castillo MDNon-patient / Eqx-asubi-[facility] Family [facility] 2024 1:00pmWilliam Kirkland-patient / Nst-nyyea-[facility] March 11, 2025 1:28pmASMARA Shearereparted Physician/Provider Office Visit-[facility] 2024 10:54amDececob[facility] 2024 11:18amDischarged to home care or self care (routine discharge)Charli Castillo MD Departed Physician/Provider Office Visit-[facility] Family Medicine [facility] 2024 2:30pm[facility] 2024 3:10pmDischarged to home care or self care (routine discharge)Melissa Neil DO Recent Diagnosis Onset Date Admit Date Essential (primary) hypertension Unknown January 17, 2025 2:26pm Inguinal hernia Unknown January 17 2:26pm Insomnia, unspecified Unknown January 2:26pm Nausea and vomiting Unknown January 17, 2025 2:26pm Opioid abuse, uncomplicated Unknown Octo 2024 2:26pm PAD (peripheral artery disease) Unknown [...] artery disease) Unknown February 28, 2025 8:50am DONAVON (acute kidney injury) Unknown Novemb er 2024 9:17pm Anemia Unknown February 28, 2 025 9:17pm Essential (primary) hypertension Unknown February 28, 2025 9:17pm Opioid abuse, uncomplicated Unknown Nove mber 2024 9:17pm PAD (peripheral artery disease) Unknown February 28, 2025 9:17pm Tobacco use July 22, 2016 February 28, 2025 9:17pm Acute renal failure Unknown February 9:17pm Hyponatremia Unknown February 28, 2 025 9:17pm Metabolic acidosis Unknown February 9:17pm B12 deficiency Unknown March 14 10:54am Essential (primary) hypertension Unknown March 14, 2025 10:54am Iron deficiency anemia Unknown March 14, 2025 10:54am PAD (peripheral artery disease) Unknown March 14, 2025 10:54am Post-renal acute kidney injury Unknown D ecember 2024 10:54am B12 deficiency Unknown March 19 2:30pm Inguinal hernia Unknown March 19 2:30pm Iron deficiency anemia Unknown March 19, 2025 2:30pm Opioid abuse, uncomplicated Unknown Dece mber 2024 2:30pm PAD (peripheral artery disease) Unknown March 19, 2025 2:30pm Post-renal acute kidney injury Unknown D ecember 2024 2:30pm Assessments Diagnosis Onset Date Resolution Status Admit Date Essential (primary) hypertension acuteOctober 2024 2:26pmInguinal herniaacuteOctober 2024 2:26pm Insomnia, unspecifiedacuteOctober 2024 2:26pmNausea and vomitingacute January 17, 2025 2:26pmOpioid abuse, uncomplicatedacuteOctober 2024 2:26pm PAD (peripheral artery disease)acuteOctober 2024 2:26pmTobacco useApril 2016acuteOctober 2024 2:26pmAKI (acute kidney injury)acuteNovember 2024 2:53pmAnemiaacuteNovember 2024 2:53pmEssential (primary) hypertensionacuteNovember 2024 2:53pmGastritisacuteNovember 2024 2:53pmInsomnia, unspecifiedacuteNovember 2024 2:53pmOpioid abuse, uncomplicatedacuteNovember 2024 2:53pmPAD (peripheral artery disease)acute February 26, 2025 2:53pmPAD (peripheral artery disease)acuteNovember 2024 8:50amAKI (acute kidney injury)acuteNovember 2024 9:17pmAnemiaacute February 28, 2025 9:17pmEssential (primary) hypertensionacuteNovember 2024 9:17pmOpioid abuse, uncomplicatedacuteNov2024 9:17pmPAD (peripheral artery disease)acuteNovember 2024 9:17pmTobacco useApril 2016acuteNovember 2024 9:17pmAcute renal failureresolvedNovember 2024 9:17pmHyponatremiaresolvedNovember 2024 9:17pmMetabolic acidosis resolvedNovember 2024 9:69vmX19 deficiencyacuteDecember 2024 10:54am Essential (primary) hypertensionacuteDecember 2024 10:54amIron deficiency anemiaacuteDecember 2024 10:54amPAD (peripheral artery disease)acute March 14, 2025 10:54amPost-renal acute kidney injuryacuteDecember 2024 10:04gmO32 deficiencyacuteDecember 2024 2:30pmInguinal herniaacuteDecember 2024 2:30pmIron deficiency anemiaacuteDecember 2024 2:30pmOpioid abuse, uncomplicatedacuteDecember 2024 2:30pmPAD (peripheral artery disease)acuteDecember 2024 2:30pmPost-renal acute kidney injuryacute March 19, 2025 2:30pm Plan of Treatment Author [facility] 2024 11:08amI reviewed the arterial studies surveillance studies [...] agree with this, obviously. Author Melissa Neil [facility]Autun[facility] centerOct[facility] 2024 2:32pmcontinue aspirin and plavix and atorvastatin no desire to quit at this time. continue trazodone as needed stable on the lisinopril/hctz currently being [facility]. Doing well and has been on [...] symptoms. Return to clinic 1 month. [address] [facility] 2024 6:53pmHe has iron deficiency anemia. I have advised him to take oral iron every other day. He has a B12 deficiency. Advised him to take oral B12 1000 unit daily. He has a partial recovery of his renal function serum creatinine is now 1.5 mg/dL. Will continue to monitor renal recovery. Advised him to avoid NSAIDs or any other jyvu-qax-mmwkfdz nephrotoxic medications. He has no absolute contraindication from renal standpoint for hernia surgery. Explained to him possible risk of DONAVON and potential need of dialysis due to the perioperative hemodynamic changes. Will continue aspirin, clopidogrel and statin. Advised to continue follow-up with the vascular surgery. His blood pressure has been running relatively low. His leg swelling has resolved. Advised him to stop hydrochlorothiazide and potassium chloride. Monitor blood pressure at home and call office if it stays above 140 over 90 mmHg. Author Melissa Neil [facility] 2024 3:42pmtaking statin, plavix and aspirin- follows with Vascular surgery follows at [facility]; has been compliant stable on lisinopril/hctz [...] 12:20pm 5 Days Renal Function Panel March 14, 2025 11:12am 6 Months Future Visits Future appointment information is unavailable Future Procedures Procedure Name Ordered Date Scheduled Date Admit Status Order February 28, 2025 9:17pm No vember 2024 9:17pm Discharge Order March 03, 2025 12:13pm Janak webster 2024 12:13pm Consult to Nephrology February 28, 2025 10:50p m February 28, 2025 10:50pm Dipstick and Microscopic March 14, 2025 11:1 2am 6 Months Hemogram CBC Without Diff March 14, 2025 11: 12am 6 Months Iron and TIBC Profile March 14, 2025 11:12am 6 Months Ferritin March 14, 2025 11:12am 6 Mon ths Magnesium March 14, 2025 11:12am 6 Mon ths Protein Creat Ratio Ur Random March 14, 2025 11:12am 6 Months Vit. B12/Folate Profile March 14, 2025 11:12 am 6 Months Vitamin D 25 Hydroxy Total March 14, 2025 11 :14am 6 Months Vitamin B12 February 26, 2025 3:30pm Basic Metabolic PanelUofl [facility] 2024 3:23pmComplete Blood Count Auto Diff February 26, 2025 3:23pmIron and TIBC ProfileUofl Health - [facility] 2024 3:27pm FerritinUofl Health - [facility] 2024 3:27pmFolateNovclearsky [facility] 2024 3:30pm Future Medications Future medication information is unavailable Patient Instructions Instruction Admit Date Know your Meds February 28, 2025 9:17pm
--- OUTSIDE RECORDS SUMMARY | 2025-03-20 13:30 | XMS_ITS | Encounter Summary ---
Author Organization [employer] Address [id number] [address] [place] [address] Care Team Providers Care Staffing Associate Name Role Phone Jolynn Liliana Primary Care Provider [phone] Reason for Visit * ReasonCommentsNew PatientNP PRE OP HERNIA DR SHEPPARDPre-op ExamHypertension * Consultation (Emergency) - Pending ReviewSpecialtyDiagnoses / Procedures Referred By ContactReferred To ContactCardiology Diagnoses Pre-op evaluation Dionicio Ford MD [address] [place] [address] [place] [id number] Phone: tel: fax: [facility] [address] [place] [address] Phone: tel: fax: Referral IDStatusReasonStart DateExpiration DateVisits RequestedVisits [id number] Review Specialty Services Required Encounter Details DateTypeDepartmentCare Team (Latest Contact Info)Bigtejmeduj00/10/2025 1:30 PM ESTOffice Visit [facility] [address] [place] [address] Theo Farris MD [address] [place], [place] [id number] Preop cardiovascular exam (Primary Dx); Hypertension, unspecified type Social History Tobacco UseTypesPacks/DayYears UsedDateSmoking Tobacco: Every DayCigarettes Passive Smoke Exposure: NeverSmokeless Tobacco: NeverAlcohol UseStandard Drinks/EmwdOljtebykMbw04 (1 standard drink = 0.6 oz pure alcohol)AUDIT-CAnswer Date RecordedQ1: How often do you have a drink containing alcohol?4 or more times a week03/20/2025verage Number of DrinksNot on file03/20/2025Frequency of Binge DrinkingNot on file03/20/2025hildcareAnswerDate RecordedChildcareUnknown 09/20/2018EmploymentAnswerDate TrwytiodNxpwpkvqhkZgtacva77/12/2019Hunger ScreeningAnswerDate RecordedWithin the past 12 months we worried whether our food would run out before we got money to buy more.Never True02/06/2025Within the past 12 months the food we bought just didn't last and we didn't have money to get more.Never True02/06/2025Sex and Gender InformationValueDate RecordedSex Assigned at BirthNot on fileLegal VdrJydk2411/14/2014 12:09 PM EDTGender Identity Not on fileSexual OrientationNot on filedocumented as of this encounter Last Filed Vital Signs Vital SignReadingTime TakenCommentsBlood Rwicwdoa895/ 1:45 PM EST Upucl497003/20/2025 1:45 PM ESTTemperature--Respiratory Rate--Oxygen Saturation-- Inhaled Oxygen Concentration--Dxznhq84.8 kg (184 lb 12.8 oz)03/20/2025 1:45 PM OLHIlyxdz016.8 cm (5' 10 )03/20/2025 1:45 PM ESTBody Mass Index26.5203/20/2025 1:45 PM ESTdocumented in this encounter Functional Status * BPAnswerDate of ZgglbiqoibYcgnhx848/80105/21/2024 1:45 PM Comfort Patel MA * PulseAnswerDate of CoacbtwgepSvrrqt0329/10/2025 1:45 PM Comfort Patel MA * HeightAnswerDate of MtvkataesdRzclig5011/10/2025 1:45 PM Comfort Patel MA * WeightAnswerDate of YhdefdpugwAxnbrn2953.8105/21/2024 1:45 PM Comfort Patel MA * BEE (kcal)AnswerDate of FafkpavsybLksntc035349/10/2025 1:45 PM Comfort Patel MA * BSA (Calculated - sq m)AnswerDate of AssessmentAuthor2. 1:45 PM Comfort Patel MA * BMI (Calculated)AnswerDate of CgtvdqmmocWdblka51. 1:45 PM Comfort Gupta MA * Alcohol UseQuestionAnswerDate of AssessmentAuthorQ1: How often do you have a drink containing alcohol?4 or more times a week03/20/2025 1:52 PM Comfort Patel MA * Weight in (lb) to have BMI = 25AnswerDate of ViegbdctmlZqmvki321. 1:45 PM Comfort Patel MA * BPAnswerDate of SadneaapxcDvaeiy407/80105/21/2024 1:45 PM Comfort Patel MA * PulseAnswerDate of YiwftovxicDlwwgc8947 1:45 PM Comfort Patel MA * HeightAnswerDate of AdkfmstsqnNjsmlw6218 1:45 PM Comfort Patel MA * WeightAnswerDate of GrmjjponrkObezqc0991.8105/21/2024 1:45 PM Comfort Patel MA * BEE (kcal)AnswerDate of KrmcuyfvezNgyrbl876513/10/2025 1:45 PM Comfort Patel MA * BSA (Calculated - sq m)AnswerDate of AssessmentAuthor2. 1:45 PM Comfort Patel MA * BMI (Calculated)AnswerDate of VkxluhycbzFbwclv77. 1:45 PM Comfort Gupta MA * Weight in (lb) to have BMI = 25AnswerDate of MqaxuevegwMdxeaf716. 1:45 PM Comfort Patel MA documented as of this encounter Mental Status * BPAnswerEntry SqefBambgk690/8012/01/2025 1:45 PM Comfort Patel MA * PulseAnswerEntry UhsxQzmoaa4978/01/2025 1:45 PM Comfort Patel MA documented in this encounter Patient Instructions * Patient Instructions* Comfort Marques MA - 03/20/2025 1:30 PM EST Are You Ready To Kick The Habit? Free Tobacco Cessation Resources [facility] Services [facility]???s Tobacco Treatment Centers provide all employees with free tobacco cessation services that include: Counseling to understand nicotine addiction Education about medications that can help you successfully quit Assistance with developing a plan to quit Call to set up an individual appointment or find out when group classes will be held: [facility]: [phone] [facility]: [phone] [facility] [place]: [phone] [facility]: [phone] Quit Smoking Action Plan and Resources [facility] offers an eight-week, online smoking cessation plan to all [facility] employees, regardless of whether [place] is your medical insurance provider. Go to www.[employer].org/employeewellness and click the ???Health Risk Assessment and Resources?? link to get started. In the [employer] menu, click ???Action Plans?? instead of ???Health Risk Assessment?? to access the Quit Smoking Action Plan. Additional smoking cessation resources are also available to all [facility] employees on the [employer] web page at www.[employer]/quitsmoking. [place] Tobacco Cessation Program If [place] is your medical insurance provider, there are more free resources available to you, including: No copays or deductibles on local tobacco cessation counseling services to help you quit Prescription assistance for tobacco cessation medications to help you quit For details about the tobacco cessation program available to [place] members, go to www.[employer] (Search: Tobacco Cessation Program). [place] Tobacco Quit Line 7-531-MMDM-NOW ( ) is a toll-free, telephonic service that helps [place] residents quit smoking and using tobacco. It is staffed by experts who tailor a quit plan for you and provide you with advice. [place] Tobacco Quit Line 0-668-SJNT-NOW ( ) is a toll-free, telephonic service that helps [place] residents quit smoking and using tobacco. It is staffed by experts who tailor a quit plan for you and provide you with advice. Two weeks of nicotine replacement therapy may be provided at no charge, if needed. Additional Resources These national organizations also offer free information and resources to help you quit tobacco: [place] [employer]--www.cancer.org/healthy/stayawayfromtobacco [place] [employer]--www.heart.org (Search: Quit Smoking) Centers for Disease Control and Prevention--www.cdc.gov/tobacco [place] [employer] Association--www.lungusa.org documented in this encounter Progress Notes * Theo Farris MD - 03/20/2025 1:30 PM EST Subhash Vieira Date of visit: 03/20/2025 Date of : 1970 Age: 54 y.o. Patient Active Problem List Diagnosis Non-recurrent unilateral inguinal hernia without obstruction or gangrene No Known Allergies Current Outpatient Medications Medication Sig Dispense Refill acamprosate (CAMPRAL) 333 mg EC tablet Take 2 tablets (666 mg total) by mouth 3 (three) times a day. aspirin 81 mg Take 1 tablet (81 mg total) by mouth in the morning. PVD. atorvastatin (LIPITOR) 40 mg tablet Take 1 tablet (40 mg total) by mouth nightly Indications: high cholesterol and high triglycerides. buprenorphine-naloxone (SUBOXONE) 8-2 mg film Dissolve 1 Film on tongue in the morning. Indications: symptoms from stopping treatment with opioid drugs. carvediloL (COREG) 3.125 mg tablet Take 1 tablet (3.125 mg total) by mouth in the morning and 1 tablet (3.125 mg total) in the evening. Take with meals. cholecalciferol, vitamin D3, 2,000 units tablet Take by mouth in the morning. clopidogreL (PLAVIX) 75 mg tablet Take 1 tablet (75 mg total) by mouth in the morning. Indications:treatment to prevent peripheral artery thromboembolism. cyanocobalamin (vitamin B-12) 1000 MCG tablet Take 1 tablet (1,000 mcg total) by mouth in the morning. ferrous sulfate 325 (65 FE) MG tablet Take 1 tablet (325 mg total) by mouth every other day. gabapentin (NEURONTIN) 100 mg capsule nightly. pantoprazole (PROTONIX) 40 mg EC tablet nightly Indications: gastroesophageal reflux disease. traZODone (DESYREL) 50 mg tablet Take 1 tablet (50 mg total) by mouth nightly. No current facility-administered medications for this visit. 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 He is a 54-year-old gentleman with peripheral vascular disease and what sounds like a femoral-popliteal bypass in May of this year performed near [place] where he lives. He has some limitations from his right lower extremitythat has persisted despite revascularization and follows with vascular closely. He has never had any sort of cardiac issues. He was not having any chest pain or pressure. Does nothave any shortness of breath. Unfortunately, he has continued to smoke despite going through lower extremity revascularization. No orthopnea. No PND. No palpitations. No dizziness or lightheadedness.His blood pressure has been under reasonable control. More recently, he is noted to have acute kidney injury that has felt to be related to volume depletion. His CARRI inhibitor was transiently held. He has been on clopidogrel and statin therapy. I do not have his most recent lipids. Otherwise feels reasonably well with some limitations from his lower extremity that has not significantly improved since revascularization procedure. Past Medical History: Diagnosis Date Arthritis Dental disease full upper denture Fractures femur, pelvis, rib GERD (gastroesophageal reflux disease) Hyperlipidemia Hypertension Peripheral vascular disease Right inguinal hernia 2024 Visual impairment glasses No data recorded No data recorded No data recorded Past Surgical History: Procedure Laterality Date FEMORAL ARTERY - FEMORAL ARTERY BYPASS GRAFT Right 1991 FRACTURE SURGERY Right 1991 HARDWARE REMOVAL Right 1994 femur ILIAC ARTERY STENT Right 2024 VASECTOMY Family History Problem Relation Age of Onset Hypertension Mother Social History Socioeconomic History Marital status: Spouse name: Not on file Number of children: Not on file Years of education: Not on file Highest education level: Not on file Occupational History Not on file Tobacco Use Smoking status: Every Day Types: Cigarettes Passive exposure: Never Smokeless tobacco: Never Vaping Use Vaping status: Never Used Substance and Sexual Activity Alcohol use: Yes Alcohol/week: 21.0 standard drinks of alcohol Types: 21 Drinks containing 0.5 oz of alcohol per week Drug use: Yes Frequency: 3.0 times per week Types: Marijuana Comment: on suboxone Sexual activity: Yes Partners: Female Other Topics Concern Caffeine Use Yes Social History Narrative Not on file Social Drivers of Health Financial Resource Strain: Not on file Food Insecurity: No Food Insecurity (02/06/2025) Hunger Screening Food Insecurity - Worry: Never True Food Insecurity - Inability: Never True Transportation Needs: Not on file Physical Activity: Not on file Stress: Not on file Social Connections: Not on file Interpersonal Safety: Not on file Housing Instability: Not on file Review of Systems Review of Systems Constitutional: Positive for malaise/fatigue. HENT: Negative for nosebleeds. Respiratory: Positive for shortness of breath (improved). Negative for cough and hemoptysis. Hematologic/Lymphatic: Does not bruise/bleed easily. Musculoskeletal: Negative for falls, joint swelling, muscle cramps and muscle weakness. Gastrointestinal: Negative for bloating and hematochezia. Genitourinary: Negative for hematuria. Neurological: Negative for dizziness, headaches and light-headedness. Vascular: Negative for claudication and lower extremity wounds or ulcers. CARDIOVASCULAR: Please review HPI. Physical Examination General appearance: Alert, oriented and cooperative. In no acute distress. Skin: Warm and dry to touch. Head: Normocephalic, without obvious abnormality, atraumatic. Ears, Nose, Mouth, Throat: Throat clear without erythema or exudate. Dentition intact. Eyes: Conjunctivae unremarkable, EOM intact. Neck: No JVD, No carotid bruit. Neck supple, trachea midline. Respiratory: Clear to auscultation bilaterally, no use of accessory muscles. Cardiovascular: RRR with normal S1 and S2 with no murmurs. Gastrointestinal: Soft, non-tender. Bowel sounds normal. Musculoskeletal: No peripheral edema. Neurologic: Oriented to time, person and place, affect appropriate. No focal/major motor defects noted. Psychiatric: Appropriate mood, memory and judgement. VITAL SIGNS: BP 124/80 (BP Site: Left Arm, BP Postition: Sitting, BP CUFF SIZE: M (9-13 inches)) Pulse 72 Ht177.8 cm (5' 10 ) Wt 83.8 kg (184 lb 12.8 oz) BMI 26.52 kg/m?? Orders Placed or Reconciled This Encounter Medications carvediloL (COREG) 3.125 mg tablet Sig: Take 1 tablet (3.125 mg total) by mouth in the morning and 1 tablet (3.125 mg total) in the evening. Take with meals. acamprosate (CAMPRAL) 333 mg EC tablet Sig: Take 2 tablets (666 mg total) by mouth 3 (three) times a day. ferrous sulfate 325 (65 FE) MG tablet Sig: Take 1 tablet (325 mg total) by mouth every other day. cyanocobalamin (vitamin B-12) 1000 MCG tablet Sig: Take 1 tablet (1,000 mcg total) by mouth in the morning. Medications Discontinued During This Encounter Medication Reason lisinopril-hydroCHLOROthiazide (PRINZIDE,ZESTORETIC) 10-12.5 mg per tablet Discontinued by another clinician IMPRESSIONS/PLAN 1. Preop cardiovascular exam - POCT EKG 2. Hypertension, unspecified type - POCT EKG Preop hernia repair HTN PVD with prior lower extremity revascularization on the right (sounds like fem- pop) 05/2024, prior inguinal stent, remote traumatic injury Tobacco abuse Recent DONAVON in the setting of volume depletion, follows with Nephrology at this point with some underlying CKD EKG today NSR Low to intermediate risk for hernia repair. He went through a major revascularization surgery without complications from a cardiac standpoint in May. He has no symptoms of angina. His functionalcapacity is somewhat reduced given his leg pain. He does closely follow up with vascular. He has jorge uld obviously continue longstanding on antiplatelet therapy and statin therapy and could be considered for low-dose Xarelto from a standpoint of his peripheral vascular disease. I do not have his most recent lipids but I would target an LDL close to 55. He most importantly needs to work on smoking cessation moving forward. Otherwise, blood pressure control has been reasonable. I do not think he needs any additional testing before surgery from a cardiac standpoint. I would suggest given his risk factors he follow up with us routinely yearly. TODAYS ORDERS Orders Placed This Encounter Procedures POCT EKG FOLLOW UP Return in about 1 year (around 03/20/2026). PCP: LILIANA NEIL DO Referring Physician: Dionicio Ford MD [address] [place] [address] [address] [place] [address] documented in this encounter Plan of Treatment DateTypeDepartmentCare Team (Latest Contact Info)Bfqivfulkqj63/30/2025 1:00 PM ESTHospital Encounter [facility] - Surgery [address] [place] [address] [place] [address] Dionicio Ford MD [address] [place] [address] [address] [place] [address] 04/09/2025 1:00 PM EST - 04/09/2025 3:00 PM ESTSurgery [facility] - Surgery [address] [place] [address] Dionicio Ford MD [address] [facility] [address] [place] [address] DAVINCI REPAIR HERNIA INGUINALNamePriorityAssociated DiagnosesDate/TimeDAVINCI REPAIR HERNIA INGUINAL INGUINAL HERNIA RIGHT 04/09/2025 1:00 PM ESTdocumented as of this encounter Goals GoalPatient Goal TypeAssociated ProblemsRecent ProgressPatient-Stated?Author Autogenerated Goal Care PlanAutogenerated ProblemGriselda Rojas Adocumented as of this encounter Procedures Procedure NamePriorityDate/TimeAssociated DiagnosisCommentsPOCT EKGRoutine 03/20/2025 Preop cardiovascular exam Hypertension, unspecified type documented in this encounter Results * POCT EKG (03/20/2025) Narrative Authorizing ProviderResult TypeResult StatusRobert Mary Lou Farris MDECG ORDERABLES Edited Result - FinalPerforming OrganizationAddressCity/State/ZIP CodePhone Number MANUALLY TRANSCRIBED RESULTS documented in this encounter Visit Diagnoses Diagnosis Preop cardiovascular exam- Primary Pre-operative cardiovascular examination Hypertension, unspecified type documented in this encounter Additional Health Concerns Active ProblemsNoted DateDiagnosed DateAutogenerated Lqmdfok3612/06/2024documented as of this encounter Care Teams Team MemberRelationshipSpecialtyStart DateEnd Date Liliana Neil DO [address] [place] [address] PCP - GeneralFamily Wdjqrgoz09/29/ Jerry Pina [facility] Vtaossl16/29/25documented as of this encounter
--- OUTSIDE RECORDS SUMMARY | 2025-03-29 10:45 | XMS_ITS | Encounter Summary ---
Author Organization [facility] Address [id number] [address] [place] [address] Care Team Providers Care Casting And Curing Operator Name Role Phone Lesley Castillo Primary Care Provider [phone] Encounter Details DateTypeDepartmentCare Team (Latest Contact Info)Vbhirrimrcl30/19/2025 10:45 AM ESTProcedure visit [facility] On [address] [address] Pre-op testing (Primary Dx) Social History Tobacco UseTypesPacks/DayYears UsedDateSmoking Tobacco: Every DayCigarettes0.530 Passive Smoke Exposure: NeverSmokeless Tobacco: Never Tobacco Cessation:Ready to Q uit: Not Asked; Counseling Given: Not Answered Comments:Decreased to 6 cigarettes a day Alcohol UseStandard Drinks/TeueKlaihmndDci37 (1 standard drink = 0.6 oz pure alcohol)2 shots per dayAUDIT-CAnswerDate RecordedQ1: How often do you have a drink containing alcohol?4 or more times a week03/20/2025verage Number of DrinksNot on file03/20/2025Frequency of Binge DrinkingNot on file03/20/2025 ChildcareAnswerDate TmybwcroMofyfycnkCkfxoio76/12/2019EmploymentAnswerDate GofjrzikGujrnubathYzskvaw66/12/2019Hunger ScreeningAnswerDate RecordedWithin the past 12 months we [...] Last Filed Vital Signs Vital SignReadingTime TakenCommentsBlood Bizqfepo813/7603/29/2025 11:07 AM EST Cxsrw226803/29/2025 11:07 AM JXZHwscmefqlza51.6 ??C (97.9 ??F)03/29/2025 11:07 AM ESTRespiratory Ztpj344005/30/2024 11:07 AM ESTOxygen Jebobpgorh53%03/29/2025 11:07 AM ESTInhaled Oxygen Concentration--Ntzsmy73.8 kg (191 lb 5.8 oz)03/29/2025 11:06 AM HCJShscci663.8 cm (5' 10 )03/29/2025 11:06 AM ESTBody [...] Digna Hollingsworth RN * BEE (kcal)AnswerDate of SlplgryvcvMyctpl147759/19/2025 11:06 AM Digna Hollingsworth, KINDRA * VitalsQuestionAnswerDate of BxsyirsxrdYomhxuXZ317/7603/29/2025 11:07 AM Digna Toro RNTemp97.912 11:07 AM Digna Hollingsworth RNTemp srcOral 03/29/2025 11:07 AM Digna Hollingsworth, ZHWdyoq0010/19/2025 11:07 AM Digna Hollingsworth KYKfxn2005 11:07 AM Digna Hollingsworth, ZDTfO88353/19/2025 11:07 AM Digna Hollingsworth RNHeart Rate QsizmnNidrmac88/19/2025 11:07 AM Digna Hollingsworth RNBP LocationRight arm03/29/2025 11:07 AM Digna Hollingsworth RNBP KmmrhfUxngzydmq09/19/2025 11:07 AM Digna Hollingsworth RN * Height and WeightQuestionAnswerDate of AxyfbxwnwoMfhzehEibcrh6280/19/2025 11:06 AM Digna Hollingsworth RNWeight3061.7503/29/2025 11:06 AM Digna Hollingsworth RNHeight GnyjsaEemmdy75/19/2025 11:06 AM Digna Hollingsworth RNBSA (Calculated - sq m)2.0703/29/2025 11:06 AM Digna Hollingsworth RNBMI (Calculated)27.512 11:06 AM Digna Hollingsworth RNWeight in (lb) to have BMI = 09987.9105/30/2024 11:06 AM Digna Hollingsworth RN * RespiratoryQuestionAnswerDate [...] RNMedical Advance Directive InformationPatient would not like jhvbmixlcor56/19/2025 11:06 AM Digna Hollingsworth RN * Influenza [...] Digna Hollingsworth RN * BEE (kcal)AnswerDate of OryotgwqymCnllwt916212/19/2025 11:06 AM Digna Hollingsworth RN * VitalsQuestionAnswerDate of GdgsrxdjspPchupiBW267/7603/29/2025 11:07 AM Digna Toro RNTemp97.9105/30/2024 11:07 AM Digna Hollingsworth RNTemp srcOral 03/29/2025 11:07 AM Digna Hollingsworth RNPulse7003/29/2025 11:07 AM Digna Hollingsworth, YTPpai7911 11:07 AM Digna Hollingsworth, FDAaT87367/19/2025 11:07 AM Digna Hollingsworth, KINDRAHeart Rate ZqqhkzDrxwloz08/19/2025 11:07 AM Digna Hollingsworth, RNBP LocationRight arm03/29/2025 11:07 AM Digna Hollingsworth RNBP XnfgpgHidtqntlz63/19/2025 11:07 AM Digna Hollingsworth RN * Height and WeightQuestionAnswerDate of UtncahpzybGogoelLrwhkk1562/19/2025 11:06 AM Digna Hollingsworth RNWeight3061.7503/29/2025 11:06 AM Digna Hollingsworth RNHeight TrhchoRdnfch53/19/2025 11:06 AM Digna Hollingsworth RNBSA (Calculated - sq m)2.0703/29/2025 11:06 AM Digna Hollingsworth RNBMI (Calculated)27.512 11:06 AM Digna Hollingsworth RNWeight in (lb) to have BMI = 00131.9105/30/2024 11:06 AM Digna Hollingsworth RN documented as of this encounter Mental Status * VitalsQuestionAnswerEntry SlyzVzaxacIV743/7603/29/2025 11:07 AM Digna Hollingsworth RNTemp97.9105/30/2024 11:07 AM Digna Hollingsworth RNTemp srcOral 03/29/2025 11:07 AM Digna Hollingsworth UKXvnmx0660/19/2025 11:07 AM Digna Hollingsworth CFNddb1569 11:07 AM Digna Hollingsworth, IBZoE73370/19/2025 11:07 AM Digna Hollingsworth, RNHeart Rate UpwlzwKfkzcky53/19/2025 11:07 AM Digna Hollingsworth, KINDRABP LocationRight arm03/29/2025 11:07 AM Digna Hollingsworth, KINDRABP ZlaxyjGuabyoqxu64/19/2025 11:07 AM Digna Hollingsworth RN * RespiratoryQuestionAnswerEntry DateAuthorRespiratory (WDL)WDL105/30/2024 11:06 AM Digna Hollingsworth RN documented in this encounter Patient Instructions * Patient Instructions* Digna Evans RN - 03/29/2025 10:45 AM EST Your surgery/procedure is scheduled at [facility] on 04/09/25 at 1pm Arrival Time 11 am [facility] Address: [address] [place] [address], [facility], [address] [place] [address] in the Emergency Center Parking lot. Report to the front end ui developer in the Emergency/Surgery Registration lobby of the hospital. Notify your SURGEON if you develop any illness such as a cold, cough, fever, sore throat, vomiting or are hospitalized between now and your surgery. Please call Pre-Admission Clinic at [phone] if you have any questions prior to surgery. For questions the morning of surgery, call the Pre-op Department at [phone]. Medication Instructions (Do not stop your medications [...] piercings, hair extensions that contain metal, nail solomon islander, make-up, and contact lens. You may brush [...] pets in your bed. Please be advised, [facility] has transitioned to a cashless payment system. [...] RIGHTS AND RESPONSIBILITIES As a patient at [facility], you have the right to: Receive medical care and be informed of who is taking care of you Be treated with dignity and respect Have a family member/claims representative of choice and your physician notified of your admission Receive information and actively participate in decisions about your care and treatment Refuse care, treatment and services Decide who may provide your support and speak for you Access synagogue and spiritual services Participate in ethical issues [...] of hospital charges and payment methods Patient/patient claims representative responsibilities are to: Provide information about [...] Plan of Treatment DateTypeDepartmentCare Team (Latest Contact Info)Gontpxnrcme02/30/2025 1:00 PM ESTHospital Encounter [facility] Surgery [address] [place] [address] [place] [address] [place] [address] [address] [place] [address] 04/09/2025 1:00 PM EST - 04/09/2025 3:00 PM ESTSurgery [facility] [address] [place] [address] Dionciio Ford MD [address] [place] [address] [address] [place] [address] DAVINCI REPAIR HERNIA INGUINALNamePriorityAssociated DiagnosesDate/TimeDAVINCI REPAIR HERNIA INGUINAL INGUINAL HERNIA RIGHT 04/09/2025 1:00 PM ESTdocumented as of this encounter Goals GoalPatient Goal TypeAssociated ProblemsRecent ProgressPatient-Stated?Author Autogenerated Goal Care PlanAutogenerated ProblemGriselda Rojas Adocumented as of this encounter Procedures Procedure NamePriorityDate/TimeAssociated DiagnosisCommentsCBC (NO DIFF)Routine 03/29/2025 11:28 AM EST Pre-op testing TYPE AND CSWRSFLqioklm60/19/2025 11:28 AM EST Pre-op testing COMPREHENSIVE METABOLIC VWDNOLsuoruc38/19/2025 11:28 AM EST Pre-op testing documented in this encounter Results * Type and screen(includes indirect sanjana) (03/29/2025 11:28 AM EST)Component ValueRef RangeTest MethodAnalysis TimePerformed AtPathologist SignatureABOA 03/29/2025 4:10 PM ESTTFL BB - CKYYECAKIJljcfsel58/19/2025 4:10 PM ESTTFL BB - WELLSKYAntibody ApplimGbrueiym86/19/2025 4:10 PM ESTTFL BB - WELLSKYSpecimen (Source)Anatomical Location / LateralityCollection Method / VolumeCollection TimeReceived TimeBloodVenous blood / UnknownVenipuncture / Fbhwqhk9503/29/2025 11:28 AM EST03/29/2025 11:29 AM EST Narrative Authorizing ProviderResult TypeResult StatusStmignon Ford MDNEW [facility] BANK TEST ORDERABLESEdited Result - FinalPerforming OrganizationAddressCity/State/ZIP Code Phone Number JPB QO - CNDJZSO [address] [place] [address], * (ABNORMAL) Comprehensive metabolic panel (03/29/2025 11:28 AM EST)Component ValueRef RangeTest MethodAnalysis TimePerformed AtPathologist SignatureSODIUM 860796 - 146 mmol/L105/30/2024 1:21 PM [facility] POTASSIUM3.3(L)3.5 - 5.0 mmol/L105/30/2024 1:21 PM [facility] ISWUWFAULOJWTAUSUH610(H)98 - 109 mmol/L105/30/2024 1:21 PM [facility] LABORATORYCARBON UTLRPUT53(L)22 - 32 mmol/L105/30/2024 1:21 PM [facility] LABORATORYANION GAP75 - 15 mmol/L105/30/2024 1:21 PM [facility]ORATORYBLOOD UREA BCQQWWSM771 - 23 mg/dL03/29/2025 1:21 PM [facility] LABORATORYCREATININE1.48(H)0.60 - 1.30 mg/dL03/29/2025 1:21 PM [facility] LABORATORYComment:METHOD TRACEABLE TO IDMS BMSPPGEKKDANRTZ458(H)65 - 99 mg/dL03/29/2025 1:21 PM [facility] LABORATORYCALCIUM8.4(L)8.5 - 10.5 mg/dL03/29/2025 1:21 PM [facility] LABORATORYTOTAL PROTEIN5.8(L)6.0 - 8.0 g/dL03/29/2025 1:21 PM [facility] LABORATORYALBUMIN3.43.2 - 5.3 g/dL03/29/2025 1:21 PM [facility] LABORATORYALKALINE TJJNWDDSLVK78160 - 130 U/L105/30/2024 1:21 PM [facility] NJFHDNYTXNOQA727(H)<=41 U/L105/30/2024 1:21 PM [facility] UCAJYOITAQAPR457(H)<=40 U/L105/30/2024 1:21 PM [facility] LABORATORYBILIRUBIN,TOTAL0.70.3 - 1.2 mg/dL03/29/2025 1:21 PM [facility]OR[facility]ORYEGFR Non-Race Wpypwsbjz72(L)>=60 ml/min/1.73sq.m 03/29/2025 1:21 PM [facility]ORATORYComment: Reported eGFR is based on the CKD-EPI 2020 equation that does not use a race coefficient. Specimen (Source)Anatomical Location / LateralityCollection Method / Volume Collection TimeReceived TimeBloodVenous blood / UnknownVenipuncture / Unknown 03/29/2025 11:28 AM EST03/29/2025 11:29 AM EST Narrative Authorizing ProviderResult TypeResult StatusStmignon Ford MDLAB BLOOD ORDERABLESFinal ResultPerforming OrganizationAddressCity/State/ZIP CodePhone Number [facility] [address] [place] [address], * (ABNORMAL) CBC without diff (03/29/2025 11:28 AM EST)ComponentValueRef Range Test MethodAnalysis TimePerformed AtPathologist SignatureWBC6.24 - 11 10^9/L 03/29/2025 1:45 PM [facility] LABORATORYRBC Count3.60(L)4.1 - 5.7 10^12/L105/30/2024 1:45 PM [facility] LABORATORYHemoglobin 11.6(L)13 - 17 g/dL03/29/2025 1:45 PM [facility] Wdemlpaaan77.4(L)39 - 50 %03/29/2025 1:45 PM [facility] DFQFFUOTEMEUU8130 - 100 fL03/29/2025 1:45 PM [facility] ZIGYZRCDMYQUT25.427 - 34 pg03/29/2025 1:45 PM [facility] NIFBGSDMSYHSYN02.932 - 36 g/dL03/29/2025 1:45 PM [facility] BSPYPDZRIUPBU49.1(H)11.5 - 15 %03/29/2025 1:45 PM [facility] LABORATORYPlatelet Jbaee308256 - 450 10^9/L105/30/2024 1:45 PM [facility] LABORATORYMPV9.07 - 12 fL03/29/2025 1:45 PM [facility] LABORATORYSpecimen (Source)Anatomical Location / Laterality Collection Method / VolumeCollection TimeReceived TimeBloodVenous blood / UnknownVenipuncture / Gxvuckj3303/29/2025 11:28 AM EST03/29/2025 11:29 AM EST Narrative Authorizing ProviderResult TypeResult StatusStmignon Ford MDLAB BLOOD ORDERABLESFinal ResultPerforming OrganizationAddressCity/State/ZIP CodePhone Number [facility] [address] [place] [address], documented in this encounter Visit Diagnoses Diagnosis Pre-op testing- Primary Unspecified pre-operative examination documented in this encounter Additional Health Concerns Active ProblemsNoted DateDiagnosed DateAutogenerated Kctmmsr5312/06/2024documented as of this encounter Care Teams Team MemberRelationshipSpecialtyStart DateEnd Date Charli Castillo MD [address] [place] [address] PCP - DkyuhwtZygbeduyrq93/19/25 Jerry Pina Vascular Tohnaab79/29/25documented as of this encounter
--- OUTSIDE RECORDS SUMMARY | 2025-04-02 14:20 | XMS_ITS | Clinical Summary ---
Author Organization [facility] Address [address] [place] [address] Care Team Providers Care Traffic Superintendent Name Role Phone Hermilo Borrero MD Primary Care Provider [phone] Yessi Luna STITCH SEPARATOR Unavailable [phone] Allergies No known active allergies Medications MedicationSigDispense QuantityRefillsLast FilledStart DateEnd DateStatus Buprenorphine HCl-Naloxone HCl (Suboxone) 8-2 MG SL film 5Active traZODone (Desyrel) 50 MG tablet Take 50-100 mg by mouth at huptuni61/03/2024Active nicotine (Nicoderm, Step 3) 7 MG/24HR patch Indications:Nicotine dependence, cigarettes, uncomplicatedPlace 1 patch over 24 hours on the skin 1 (one) time each day at the same time 14 patch 5Active atorvastatin (Lipitor) 40 MG tablet Take 40 mg by mouth in the nnilprz41/12/2025Active clopidogrel (Plavix) 75 MG tablet Take 75 [...] AM EDT): Currently taking suboxone Cont with [employer] Cigarette nicotine dependence without xghfcgaantpx41/07/2025 Assessment & Plan (07/16/2024 4:05 PM EDT): Prior to vascular surgery 0.5-1ppd, now is doing 4 cigs daily Patch is 14mg patch Right inguinal xvltvz5404/25/2024 Assessment & Plan (10/22/2024 6:48 PM EDT): [...] flag sxs to monitor Abnormal ultrasound of tydjeu0704/25/2024Iliac artery occlusion, right04/25/2024 Primary sydvnjcnctxs01/07/2025 Assessment & Plan (10/22/2024 6:47 PM EDT): [...] Plan (04/17/2024 4:06 PM EST): Follows at [facility] there placed pt on Losartan- hydrochlorothiazide [...] GOAL 6-8 hours of sleep per night. Hieckyz2904/17/2024Screening for malignant neoplasm of colon04/17/2024 Assessment & [...] DateResolved DateScreening for hyperlipidemia Screening for diabetes ajtitdab03 Family History Medical HistoryRelationNameCommentsHypertensionMotherMomRelationNameStatus CommentsMotherMomAlive Social History Tobacco UseTypesPacks/DayYears UsedDateSmoking Tobacco: Every PzeAtgjidfqar599 Smokeless Tobacco: Never Tobacco Cessation:Ready to Q uit: Not Asked; Counseling Given: Not Answered Alcohol UseStandard Drinks/WeekCommentsYes0 (1 standard drink = 0.6 oz pure alcohol)Sex and Gender InformationValueDate RecordedSex Assigned at BirthNot on fileLegal WvnKpnr2006/23/2022 6:43 PM EDTGender IdentityNot on fileSexual OrientationNot on file Last Filed Vital Signs Vital SignReadingTime TakenCommentsBlood Uacpnqad639/7807 2:53 PM EDT Cgscg287510/22/2024 2:53 PM GYGErmrdasexgi79.6 ??C (97.8 ??F)10/22/2024 2:53 PM EDTRespiratory Rrbg417410/22/2024 2:53 PM EDTOxygen Bunsouvchg03%10/22/2024 2:53 PM EDTInhaled Oxygen Concentration--Bymlwy86 kg (172 lb)10/22/2024 2:53 PM EDT Tvjgfj476.8 cm (5' 10 )09/06/2024 3:12 PM EDTBody Mass Index24.68009/06/2024 3:12 PM EDT Plan of Treatment Not on file Insurance Care Teams Team MemberRelationshipSpecialtyStart DateEnd Date Hermilo Borrero MD PCP - GeneralFamily Ckkgyuuw59/4/24 Yessi Luna NP Nurse PractitionerFamily Tbnszkoz00/4/24
--- OUTSIDE RECORDS SUMMARY | 2025-04-02 14:20 | XMS_ITS | Clinical Summary ---
Author Organization [facility] Address [address] [place] [address] Care Team Providers Care Metal Solderer Name Role Phone Theo Brooks Jr. Primary Care Provider Domingo Dallas Unavailable [phone] Allergies No known active allergies Medications MedicationSigDispense QuantityRefillsLast FilledStart DateEnd DateStatus lisinopril (ZESTRIL, PRINIVIL) 20 mg tablet Take 1 tablet daily.03/29/2014ctive Diclofenac Sodium (VOLTAREN) 1 % gel Apply twice daily.ctive gabapentin (NEURONTIN) 600 mg tablet Take 1 tablet by mouth twice daily.06/24/2014ctive aspirin, enteric coated (ASPIRIN, ENTERIC COATED) 81 mg EC tablet Take 1 tablet by mouth once daily.5Active atorvastatin (LIPITOR) 40 mg tablet Take 40 mg by mouth once daily.5Active buprenorphine-naloxone (SUBOXONE) 8-2 mg film 2 films once daily.Active cholecalciferol (VITAMIN D3) 1,000 unit tab tablet Take 25 mcg by mouth.5Active clopidogrel (PLAVIX) 75 mg tablet Take 75 mg by mouth.5Active lisinopril-hydroCHLOROthiazide (ZESTORETIC) 10-12.5 mg per tablet Take 1 tablet by mouth once daily.5Active Family History Medical HistoryRelationCommentsrheumatoid arthritis [Other]MotherRelationStatus CommentsMother Social History Tobacco UseTypesPacks/DayYears UsedDateSmoking Tobacco: Every DayCigarettes Tobacco Cessation:Ready to Q uit: Not Asked; Counseling Given: Not Answered Alcohol UseStandard Drinks/WeekCommentsNo0 (1 standard drink = 0.6 oz pure alcohol)Area Deprivation IndexAnswerDate RecordedNational Score (1-100), lower number is lower wpsj736110/02/2024State Score (1-10), lower number is lower risk6 10/02/2024Data from: https://www.neighborhoodatlas.medicine.[facility]/. Last address used for sopgbhqyvlh[address]/02/2024Sex and Gender Information ValueDate RecordedSex Assigned at BirthNot on fileLegal TbhAldb3506/07/2014 2:50 PM ESTGender IdentityNot on fileSexual OrientationNot on file Last Filed Vital Signs Vital SignReadingTime TakenCommentsBlood Szxqbipg073/75010/02/2024 11:26 AM EDT Qqpip607610/02/2024 11:26 AM EDTTemperature--Respiratory Rate--Oxygen Saturation-- Inhaled Oxygen Concentration--Klwwql29.8 kg (173 lb 11.6 oz)10/02/2024 11:26 AM ZBRWmrnlv809.8 cm (5' 10 )10/02/2024 11:26 AM EDTBody Mass Index24.9310/02/2024 11:26 AM EDT Plan of Treatment Health MaintenanceDue DateLast DoneCommentsAnxiety Vgrworntc25/16/1990Depression Hlolelfng37/16/1990HIV Zzqubrtmw69/16/1990Hepatitis C Zirosewjj17/16/1990 DTaP,Tdap,Td Vaccine (1 - Tdap)07/25/1990Hepatitis B Vaccine (1 of 3 - 19+ 3- dose series)07/25/1990Pneumococcal Vaccine: 50+ (1 of 2 - PCV)07/25/1990Lipid Fbabyyrer41/16/2007CT Rxbfmpligkra13/16/2017Cologuard (FIT-DNA)07/25/2016 Dqhodouuiqt09/16/2017Colorectal Cancer Yufxlxwoh65/16/2017Fecal Occult Blood 07/25/20167737Dsqhiqywlmxak07/16/2017Shingrix Vaccine (1 of 2)2Covid-19 Vaccine (1 - 2025-26 season)2024Influenza Vaccine (#1)2024Diabetes Fziffnyym74RSV Vaccine (1 - 1-dose 75+ series)07/25/2046 Insurance Care Teams Team MemberRelationshipSpecialtyStart DateEnd Theo Brooks Jr. [facility] - [facility]14 Domingo Del Rosario [address] [address] General Surgery09/06/24
--- OUTSIDE RECORDS SUMMARY | 2025-04-02 14:20 | XMS_ITS | Encounter Summary ---
Author Organization [employer] [facility] tem Address [id number] [address] [place] [address] Care Team Providers Care Inspector Mechanical Name Role Phone Lesley Castillo Primary Care Provider [phone] Encounter Details DateTypeDepartmentCare Team (Latest Contact Info)Oklwcifnnas98/19/2025Travel Social History Tobacco UseTypesPacks/DayYears UsedDateSmoking Tobacco: Every DayCigarettes0.530 Passive Smoke Exposure: NeverSmokeless Tobacco: Never Comments:Decreased to 6 ciga rettes a day Alcohol UseStandard Drinks/ZmwsWnbfddvbMuf43 (1 standard drink = 0.6 oz pure alcohol)2 shots per dayAUDIT-CAnswerDate RecordedQ1: How often do you have a drink containing alcohol?4 or more times a week03/20/2025verage Number of DrinksNot on file03/20/2025Frequency of Binge DrinkingNot on file03/20/2025 ChildcareAnswerDate RaybmksgFmjaofhhlEqwfvka70/12/2019EmploymentAnswerDate YbntapthEdlndjmpdoEptwafy12/12/2019Hunger ScreeningAnswerDate RecordedWithin the past 12 months we [...] OrientationNot on filedocumented as of this encounter Plan of Treatment DateTypeDepartmentCare Team (Latest Contact Info)Jbswpwfcvcn93/30/2025 1:00 PM ESTHospital Encounter [facility] [address] [place] [address] [place] [address] [place] [address] [place] [address] 04/09/2025 1:00 PM EST - 04/09/2025 3:00 PM ESTSurgery [facility] [address] [place] [address] [place] [address] [place] [address] [place] [address] DAVINCI REPAIR HERNIA INGUINALNamePriorityAssociated DiagnosesDate/TimeDAVINCI REPAIR HERNIA INGUINAL INGUINAL HERNIA RIGHT 04/09/2025 1:00 PM ESTdocumented as of this encounter Goals GoalPatient Goal TypeAssociated ProblemsRecent ProgressPatient-Stated?Author Autogenerated Goal Care PlanAutogenerated Reena Griselda Adocumented as of this encounter Visit Diagnoses Not on filedocumented in this encounter Additional Health Concerns Active ProblemsNoted DateDiagnosed DateAutogenerated Yelqyni9112/06/2024documented as of this encounter Care Teams Team MemberRelationshipSpecialtyStart DateEnd Date Charli Castillo MD [address] [place] [address] PCP - HxshxxaRlssjxpyfa07/19/25 Jerry Pina Vascular Otecnka84/29/25documented as of this encounter
--- OUTSIDE RECORDS SUMMARY | 2025-04-02 14:20 | XMS_ITS | Clinical Summary ---
Author Organization Amadesa s tem Address [id number] [address] [place] [address] Care Team Providers Care Distributor Of Directories Name Role Phone Lesley Castillo Primary Care Provider [phone] Allergies No known active allergies Medications MedicationSigDispense QuantityRefillsLast FilledStart DateEnd DateStatus aspirin 81 mg Take 1 tablet (81 mg total) by mouth in the morning. PVD.5Active buprenorphine-naloxone (SUBOXONE) 8-2 mg film Indications:opioid withdrawal symptomsDissolve 1 Film on tongue in the morning. Indications: symptoms from stopping treatment with opioiddrugs.Active clopidogreL (PLAVIX) 75 mg tablet Indications:peripheral arterial thromboembolism preventionTake 1 tablet (75 mg total) by mouth in the morning. Indications: treatment to prevent peripheral ar malou thromboembolism.5Active traZODone (DESYREL) 50 mg tablet Take 1 tablet (50 mg total) by mouth nightly as needed for sleep.03/13/2024 Active pantoprazole (PROTONIX) 40 mg EC tablet Indications:gastroesophageal reflux diseaseTake 1 tablet (40 mg total) by mouth nightly Indications: gastroesophageal reflux disease.5Active gabapentin (NEURONTIN) 100 mg capsule Indications:alcohol use disorderTake 1 capsule (100 mg total) by mouth nightly Indications: alcohol use disorder.5Active atorvastatin (LIPITOR) 40 mg tablet Indications:mixed hyperlipidemiaTake 1 tablet (40 mg total) by mouth nightly Indications: high cholesterol and high triglycerides.Active cholecalciferol, vitamin D3, 2,000 units tablet Indications:prevention of vitamin D deficiencyTake 1 tablet (2,000 Units total) by mouth in the morning. Indications: prevention of vitamin D deficiency.Active carvediloL (COREG) 3.125 mg tablet Indications:hypertensionTake 1 tablet (3.125 mg total) by mouth in the morning and 1 tablet (3.125 mg total) in the evening. Take with meals. Indications: high blood pressure.5Active acamprosate (CAMPRAL) 333 mg EC tablet Indications:alcohol use disorderTake 2 tablets (666 mg total) by mouth 3 (three) times a day Indications: alcohol use disorder.5Active ferrous sulfate 325 (65 FE) MG tablet Indications:iron deficiency anemiaTake 1 tablet (325 mg total) by mouth every other day Indications: anemia from inadequate iron.03/19/2025tive cyanocobalamin (vitamin B-12) 1000 MCG tablet Take 1 tablet (1,000 mcg total) by mouth in the morning. supplement.Active lisinopril-hydroCHLOROthiazide (PRINZIDE,ZESTORETIC) 10-12.5 mg per tablet Indications:hypertensionTake 1 tablet by mouth in the morning. Indications: high blood pressure.Discontinued(Discontinued by another clinician) Active Problems ProblemNoted DateDiagnosed DateAcute renal vpcbctt5703/29/20255205Eybjly05/19/2670Z45 mvkmyyxuox89/19/2025Encounter for screening for ztdvezddrc36/19/2025Gastritis 03/29/20255247Wetxwidsxdaa74/19/2025Insomnia, vmejiigxrdk67/19/2025Intermittent xvnxoxnyetvr70/19/2025Iron deficiency lpnbfh0803/29/2025Low back pain, unspecified 03/29/2025Metabolic fvelrxct87/19/2025Nausea and rtehhrgn43/19/2025Noninfective gastroenteritis and colitis, ilszmamrotc76/19/2025Opioid abuse, uncomplicated 03/29/2025Other chronic pain03/29/2025Pain in left wrist03/29/2025Pain in right knee03/29/2025Postoperative pain03/29/2025Post-renal acute kidney injury 03/29/2025Non-recurrent unilateral inguinal hernia without obstruction or rfhxyxrr35/11/2025igarette nicotine dependence without xyxpyfyihpll49/07/2025 PAD (peripheral artery disease)07/16/2024Substance use07/16/2024bnormal ultrasound of sesydd7704/25/2024Iliac artery occlusion, right04/25/2024Right inguinal vicsos1904/25/2024 Overview (03/29/2025): right Lzuswoc0404/17/2024Primary csoinbmnolyr65/07/2025ute recurrent maxillary vsltpadbe82/08/2019Pain in right cvetfvia72/09/2018Anxiety disorder, unspecified 04/28/2015 Encounters DateTypeDepartmentCare NpkqAwsdimoclsq53/19/2025 10:45 AM ESTProcedure visit [facility] On [address] [address] Pre-op testing (Primary Dx)03/29/20256316Otosqu13/10/2025 1:30 PM ESTOffice Visit [facility] [address] [place] [phone] Theo Farris MD Preop cardiovascular exam (Primary Dx); Hypertension, unspecified type03/14/2025bstract [facility] [address] [place] [address] External, Scanning Provider 02/18/2025[facility]phone [facility] [address] [place] [phone] Qian Keyes 02/11/2025Telephone [facility] [address] [place] [address] Qian Keyes 02/08/2025Orders Only [facility] [address] [facility] [place] [address] [place] [phone] M[address] Pre-op evaluation (Primary Dx)02/06/2025 1:45 PM EDTProcedure visit [facility] On [address] [address] Pre-op testing (Primary Dx)from Last 3 Months Family History Medical HistoryRelationNameCommentsGlaucomaFatherHeart attackMotherHypertension MotherAnesthesia problemsNeg HxRelationNameStatusCommentsFatherAliveMother Social History Tobacco UseTypesPacks/DayYears UsedDateSmoking Tobacco: Every DayCigarettes0.530 Passive Smoke Exposure: NeverSmokeless Tobacco: Never Tobacco Cessation:Ready to Q uit: Not Asked; Counseling Given: Not Answered Comments:Decreased to 6 cigarettes a day Alcohol UseStandard Drinks/FcagZasbtdvkAij33 (1 standard drink = 0.6 oz pure alcohol)2 shots per dayAUDIT-CAnswerDate RecordedQ1: How often do you have a drink containing alcohol?4 or more times a week03/20/2025verage Number of DrinksNot on file03/20/2025Frequency of Binge DrinkingNot on file03/20/2025 ChildcareAnswerDate DllwccsdTebcluidtSvovkzq90/12/2019EmploymentAnswerDate MkocdptiKauzxwwatoExtdewr35/12/2019Hunger ScreeningAnswerDate RecordedWithin the past 12 months we [...] Last Filed Vital Signs Vital SignReadingTime TakenCommentsBlood Abfaeyaa085/7603/29/2025 11:07 AM EST Ccatz122403/29/2025 11:07 AM SPBVksxwouhqqi62.6 ??C (97.9 ??F)03/29/2025 11:07 AM ESTRespiratory Aagx566805/30/2024 11:07 AM ESTOxygen Llubyfdbrs07%03/29/2025 11:07 AM ESTInhaled Oxygen Concentration--Hsrkcp44.8 kg (191 lb 5.8 oz)03/29/2025 11:06 AM WRNCrwofb559.8 cm (5' 10 )03/29/2025 11:06 AM ESTBody Mass Index27.46 03/29/2025 11:06 AM EST Plan of Treatment DateTypeDepartmentCare Team (Latest Contact Info)Sqpjckpjopj66/30/2025 1:00 PM ESTHospital Encounter [place] [address] [address] Dionicio Ford MD [address] [place] [address] [place] [address] 04/09/2025 1:00 PM EST - 04/09/2025 3:00 PM ESTSurgery [facility] [place] [address] Dionicio Ford MD [address] [place] [address] [place] [address] DAVINCI REPAIR HERNIA INGUINALNamePriorityAssociated DiagnosesDate/TimeDAVINCI REPAIR HERNIA INGUINAL INGUINAL HERNIA RIGHT 04/09/2025 1:00 PM ESTHealth MaintenanceDue DateLast DoneCommentsStatin Use: Meeihmkybgakcn39/16/1972Tobacco Yjyitoqjvj39/16/1972Depression Screening 1983Adult BMI Follow Up Plan07/25/1989DTaP,Tdap and Td Vaccines (1 - Tdap) 07/25/1990Zoster (Shingles) Vaccine (1 of 2)07/25/2021Influenza Vaccine 5Adult BMI Rjdvbnbcb94Tobacco Qreywwgxq83/19/2026 03/29/2025 Goals GoalPatient Goal TypeAssociated ProblemsRecent ProgressPatient-Stated?Author Autogenerated Goal Care PlanAutogenerated Griselda [employer] Not on file Procedures Procedure NamePriorityDate/TimeAssociated DiagnosisCommentsTYPE AND SCREEN Fgrfxkw7803/29/2025 11:28 AM EST Pre-op testing CBC (NO DIFF)Wqlllap2203/29/2025 11:28 AM EST Pre-op testing COMPREHENSIVE METABOLIC GSGTPKcauckh30/19/2025 11:28 AM EST Pre-op testing POCT BARTbnsnxt56/10/2025 Preop cardiovascular exam Hypertension, unspecified type REPEATED JINBJVscsica90/29/2025 2:13 PM EDT Pre-op testing TYPE AND TTNZACUgnaows37/29/2025 2:13 PM EDT Pre-op testing CBC WITH AUTO XPBFQSNQVHQZPcesxgo03/29/2025 2:13 PM EDT Pre-op testing COMPREHENSIVE METABOLIC SPNPKKbwxuho99/29/2025 2:13 PM EDT Pre-op testing ECG 12-DGRQHnvcems48/29/2025 2:03 PM EDT Pre-op testing from Last 3 Months Results * (ABNORMAL) CBC without diff (03/29/2025 11:28 AM EST)ComponentValueRef Range Test MethodAnalysis TimePerformed AtPathologist SignatureWBC6.24 - 11 10^9/L 03/29/2025 1:45 PM [facility] LABORATORYRBC Count3.60(L)4.1 - 5.7 10^12/L105/30/2024 1:45 PM [facility] LABORATORYHemoglobin 11.6(L)13 - 17 g/dL03/29/2025 1:45 PM [facility] Gpjvomfhbn59.4(L)39 - 50 %03/29/2025 1:45 PM [facility] URWSYSNPYXEQU4878 - 100 fL03/29/2025 1:45 PM [facility] BHBEOECQFFAWW33.427 - 34 pg03/29/2025 1:45 PM [facility] MOORMFSXDHFXNF14.932 - 36 g/dL03/29/2025 1:45 PM [facility] ANZMAFRWXTSJD00.1(H)11.5 - 15 %03/29/2025 1:45 PM [facility] LABORATORYPlatelet Adsmd714801 - 450 10^9/L105/30/2024 1:45 PM [facility] LABORATORYMPV9.07 - 12 fL03/29/2025 1:45 PM [facility] LABORATORYSpecimen (Source)Anatomical Location / Laterality Collection Method / VolumeCollection TimeReceived TimeBloodVenous blood / UnknownVenipuncture / Qdlnqtj8403/29/2025 11:28 AM EST03/29/2025 11:29 AM EST Narrative Authorizing ProviderResult TypeResult StatusStmignon EDUARDO BLOOD ORDERABLESFinal ResultPerforming OrganizationAddressCity/State/ZIP CodePhone Number [facility] [address] [place] [address], * Type and screen(includes indirect sanjana) (03/29/2025 11:28 AM EST) Only the most recent of2 resultswithin the time period is included. ComponentValueRef RangeTest MethodAnalysis TimePerformed AtPathologist Signature ABOA105/30/2024 4:10 PM ESTTFL BB - ABOIWRYGWPdilrpls11/19/2025 4:10 PM ESTTFL BB - WELLSKYAntibody QsiwheCsxtaqkz69/19/2025 4:10 PM ESTTFL BB - WELLSKYSpecimen (Source)Anatomical Location / LateralityCollection Method / VolumeCollection TimeReceived TimeBloodVenous blood / UnknownVenipuncture / Zbtpoyl9403/29/2025 11:28 AM EST03/29/2025 11:29 AM EST Narrative Authorizing ProviderResult TypeResult StatusDionicio TORRESOOD BANK TEST ORDERABLESEdited Result - FinalPerforming OrganizationAddressCity/State/ZIP Code Phone Number [facility] - [address] [place] [address], * (ABNORMAL) Comprehensive metabolic panel (03/29/2025 11:28 AM EST) Only the most recent of2 resultswithin the time period is included. ComponentValueRef RangeTest MethodAnalysis TimePerformed AtPathologist Signature BYQQUE460229 - 146 mmol/L105/30/2024 1:21 PM [facility] LABORATORYPOTASSIUM3.3(L)3.5 - 5.0 mmol/L105/30/2024 1:21 PM [facility] CGFXLGYOKUUIJCIWCG724(H)98 - 109 mmol/L105/30/2024 1:21 PM [facility] LABORATORYCARBON DUJDUKK49(L)22 - 32 mmol/L105/30/2024 1:21 PM [facility] LABORATORYANION GAP75 - 15 mmol/L105/30/2024 1:21 PM [facility] LABORATORYBLOOD UREA AGYHLZJK312 - 23 mg/dL 03/29/2025 1:21 PM [facility] LABORATORYCREATININE1.48(H)0.60 - 1.30 mg/dL03/29/2025 1:21 PM [facility]ORATORYComment: METHOD TRACEABLE TO IDAL XCECDOLIFPLPRWN468(H)65 - 99 mg/dL03/29/2025 1:21 PM [facility] LABORATORYCALCIUM8.4(L)8.5 - 10.5 mg/dL03/29/2025 1:21 PM [facility] LABORATORYTOTAL PROTEIN5.8(L)6.0 - 8.0 g/dL 03/29/2025 1:21 PM [facility] LABORATORYALBUMIN3.43.2 - 5.3 g/dL03/29/2025 1:21 PM [facility] LABORATORYALKALINE OVZEHMRPVQM80466 - 130 U/L105/30/2024 1:21 PM [facility] ZATEQWMAGNGFC061(H)<=41 U/L105/30/2024 1:21 PM [facility] QNTXTSYDRAYEE717(H)<=40 U/L105/30/2024 1:21 PM [facility] LABORATORYBILIRUBIN,TOTAL0.70.3 - 1.2 mg/dL03/29/2025 1:21 PM [facility] LABORATORYEGFR Non-Race Nelbsiman69(L)>=60 ml/min/1.73sq.m105/30/2024 1:21 PM [facility] LABORATORYComment: Reported eGFR is based on the CKD-EPI 2020 equation that does not use a race coefficient. Specimen (Source)Anatomical Location / LateralityCollection Method / Volume Collection TimeReceived TimeBloodVenous blood / UnknownVenipuncture / Unknown 03/29/2025 11:28 AM EST03/29/2025 11:29 AM EST Narrative Authorizing ProviderResult TypeResult StatusDionicio Ford MDLAB BLOOD ORDERABLESFinal ResultPerforming OrganizationAddressCity/State/ZIP CodePhone Number [facility] [address] [place] [address], [place] [phone] * POCT EKG (03/20/2025) Narrative Authorizing ProviderResult TypeResult StatusTheo Farris MDECG ORDERABLES Edited Result - FinalPerforming OrganizationAddressCity/State/ZIP CodePhone Number MANUALLY TRANSCRIBED RESULTS * ABO Rh Repeat (02/06/2025 2:13 PM EDT)ComponentValueRef RangeTest Method Analysis TimePerformed AtPathologist MkvhtbtxeXGHW26/29/2025 6:45 PM EDTTTH SHAHIDA - UIFEQHUPSOefynlhj80/29/2025 6:45 PM EDTTTH BB - DUNGSpecimen (Source) Anatomical Location / LateralityCollection Method / VolumeCollection Time Received TimeBloodVenous blood / UnknownVenipuncture / Hyigpbj9602/06/2025 2:13 PM EDT1 2:14 PM EDT Narrative Authorizing ProviderResult TypeResult StatusDionicio Ford MDBLOOD BANK TEST ORDERABLESFinal ResultPerforming OrganizationAddressCity/State/ZIP CodePhone Number [facility] - [facility] [address] [address], [place] * (ABNORMAL) CBC auto differential (02/06/2025 2:13 PM EDT)ComponentValueRef RangeTest MethodAnalysis TimePerformed AtPathologist SignatureWBC6.74 - 11 x10E9/L1 5:31 PM [facility] LABORATORYRBC Count3.56 (L)4.1 - 5.7 X10E12/L1 5:31 PM [facility] Byhgvylqzk18.3(L)13 - 17 g/dL02/06/2025 5:31 PM [facility] SCWYRJAQRLPoqftnaugv54.0(L)39 - 50 %02/06/2025 5:31 PM [facility] JIRUEHRZJBXAH0673 - 100 fL02/06/2025 5:31 PM [facility] JERJVBVKAPTOQ29.927 - 34 pg02/06/2025 5:31 PM [facility] IVUQEOMBVBZORU13.332 - 36 g/dL02/06/2025 5:31 PM [facility] AQXXYSUGRXLJP83.911.5 - 15 %02/06/2025 5:31 PM [facility] LABORATORYPlatelet Dvtad520850 - 450 X10E9/L1 5:[address] [facility] LABORATORYMPV8.07 - 12 fL02/06/2025 5:31 PM [facility] LABORATORYNeutrophils %61.5%02/06/2025 5:31 PM [facility] LABORATORYLymphocytes %24.4%02/06/2025 5:31 PM [facility] LABORATORYMonocytes %10.5%02/06/2025 5:31 PM [facility] LABORATORYEosinophils %2.5%02/06/2025 5:31 PM [facility] LABORATORYBasophils %1.1%02/06/2025 5:31 PM [facility] LABORATORYNeutrophils Absolute (A)4.11.5 - 6.6 10*3/uL 02/06/2025 5:31 PM [facility] LABORATORYLymphocytes Absolute 1.61.0 - 3.5 10*3/uL02/06/2025 5:31 PM [facility] Monocytes Absolute0.70.0 - 0.9 10*3/uL02/06/2025 5:31 PM [facility] LABORATORYEosinophils Absolute0.20.0 - 0.4 10*3/uL02/06/2025 5:31 PM [facility] LABORATORYBasophils Absolute0.10.0 - 0.2 10*3/uL 02/06/2025 5:31 PM [facility] LABORATORYDifferential Type AUTOMATED PDAKXFZUQOTL70/29/2025 5:31 PM [facility] LABORATORYSpecimen (Source)Anatomical Location / LateralityCollection Method / VolumeCollection TimeReceived TimeBloodVenous blood / UnknownVenipuncture / Ifybpkj8702/06/2025 2:13 PM EDT1 2:14 PM EDT Narrative Authorizing ProviderResult TypeResult StatusStmignon EDUARDO BLOOD ORDERABLESFinal ResultPerforming OrganizationAddressCity/State/ZIP CodePhone Number [facility] [address] [place] [address], * ECG 12 lead (02/06/2025 2:03 PM EDT)Specimen (Source)Anatomical Location / LateralityCollection Method / VolumeCollection TimeReceived Time02/06/2025 2:03 PM EDT Narrative [facility] - 02/07/2025 5:37 PM EDT Authorizing ProviderResult TypeResult StatusGrwisam RODGERS ORDERABLESFinal ResultPerforming OrganizationAddressCity/State/ZIP CodePhone Number [facility] from Last 3 Months Additional Health Concerns Active ProblemsNoted DateDiagnosed DateAutogenerated Uapvjxs4012/06/2024 Insurance Care Teams Team MemberRelationshipSpecialtyStart DateEnd Date Charli Castillo MD [address] [place] [address] PCP - XitrpotEtdtacxogk45/19/25 Jerry [facility] Pzllrry18/29/25
[2025-04-02 15:43] LABS: Albumin Globulin Ratio 0.8; Albumin Level 2.6 g/dL (3.4-5.0); Alkaline Phosphatase 180 U/L (46-116); Anion Gap 17.6; Blood Urea Nitrogen 16.0 mg/dL (7.0-18.0); Calcium 7.8 mg/dL (8.5-10.1); Carbon Dioxide 15.7 mmol/L (21.0-32.0); Chloride 107 mmol/L (98-107); Estimated GFR (African America >60 (>=60 mL/min/1.73m^2); Estimated GFR (Non-African Ame 53 (>=60 mL/min/1.73m^2); Globulin 3.3 g/dL; Lipase 125.0 U/L (16.0-77.0); Potassium 3.3 mmol/L (3.5-5.1); Sodium 137 mmol/L (136-145); Total Protein 5.9 g/dL (6.4-8.2)
[2025-04-02 17:42] LABS: Alanine Aminotransferase 154 U/L (16-63); Aspartate Amino Transferase 155 U/L (15-37); Glucose 208 mg/dL (74-106)
== END 2025-04-02 14:14 | disposition home or self-care (01) ==
LOC: LAB 14:17
PROVIDERS: PCP Family Medicine; Visit Provider Family Medicine
DX: R79.89 Other specified abnormal findings of blood chemistry (principal)
CPT/HCPCS: 36415; 80053; 80074; 80320; 83690

== ENCOUNTER 2025-04-08 19:24 | Outpatient (OUT) | payer BC, SELFPAY ==
--- OUTSIDE RECORDS SUMMARY | 2025-03-29 10:45 | XMS_ITS | Encounter Summary ---
Author Organization [facility] tem Address [id number] [address] [place] [address] Care Team Providers Care Legal Collector Name Role Phone Lesley Castillo Primary Care Provider [phone] Encounter Details DateTypeDepartmentCare Team (Latest Contact Info)Qipzubvljie02/19/2025 10:45 AM ESTProcedure visit [facility] On [address] [address] Pre-op testing (Primary Dx) Social History Tobacco UseTypesPacks/DayYears UsedDateSmoking Tobacco: Every DayCigarettes0.530 Passive Smoke Exposure: NeverSmokeless Tobacco: Never Tobacco Cessation:Ready to Q uit: Not Asked; Counseling Given: Not Answered Comments:Decreased to 6 cigarettes a day Alcohol UseStandard Drinks/ZzssDepxyfyjWsm84 (1 standard drink = 0.6 oz pure alcohol)2 shots per dayAUDIT-CAnswerDate RecordedQ1: How often do you have a drink containing alcohol?4 or more times a week03/20/2025verage Number of DrinksNot on file03/20/2025Frequency of Binge DrinkingNot on file03/20/2025 ChildcareAnswerDate MatuvifvAllmoclawMpukndd97/12/2019EmploymentAnswerDate TgilvzhzLwykmbfmkuXhrrvzo51/12/2019Hunger ScreeningAnswerDate RecordedWithin the past 12 months we worried whether our food would run out before we got money to buy more.Never True03/29/2025Within the past 12 months the food we bought just didn't last and we didn't have money to get more.Never True03/29/2025Sex and Gender InformationValueDate RecordedSex Assigned at BirthNot on fileLegal Sex Male11/14/2014 12:09 PM EDTGender IdentityNot on fileSexual OrientationNot on filedocumented as of this encounter Last Filed Vital Signs Vital SignReadingTime TakenCommentsBlood Njfzpguu999/7603/29/2025 11:07 AM EST Jjsxi071103/29/2025 11:07 AM AGLTizvvjeusen97.6 ??C (97.9 ??F)03/29/2025 11:07 AM ESTRespiratory Mgpw177305/30/2024 11:07 AM ESTOxygen Kprqlcafbf98%03/29/2025 11:07 AM ESTInhaled Oxygen Concentration--Iosrtd78.8 kg (191 lb 5.8 oz)03/29/2025 11:06 AM CGOGycwib768.8 cm (5' 10 )03/29/2025 11:06 AM ESTBody Mass Index27.46 03/29/2025 11:06 AM ESTdocumented in this encounter Functional Status * Food InsecurityQuestionAnswerDate of AssessmentAuthorWithin the past 12 months the food we bought just didn't last and we didn't have money to get more.Never True03/29/2025 11:07 AM Digna Hollingsworth, KINDRAWithin the past 12 months we worried whether our food would run out before we got money to buy more.Never True03/29/2025 11:07 AM Digna Hollingsworth RN * AN Cardiac QuestionsQuestionAnswerDate of AssessmentAuthorCP when climbing a flight of stairs or walking a city block?No03/29/2025 11:06 AM Digna Hollingsworth RNSOB when climbing a flight of stairs or walking a city block?No 03/29/2025 11:06 AM Digna Hollingsworth RN * BEE (kcal)AnswerDate of MavcawhdacZolvwo135435/19/2025 11:06 AM Digna Hollingsworth, KINDRA * VitalsQuestionAnswerDate of FeeyunyrsoQtvaxjWZ111/7603/29/2025 11:07 AM Digna Toro RNTemp97.912 11:07 AM Digna Hollingsworth RNTemp srcOral 03/29/2025 11:07 AM Digna Hollingsworth, QGNenfr8136/19/2025 11:07 AM Digna Hollingsworth QLAbtm7024 11:07 AM Digna Hollingsworth, WBBhG68885/19/2025 11:07 AM Digna Hollingsworth RNHeart Rate JqvxerIpnreic85/19/2025 11:07 AM Digna Hollingsworth RNBP LocationRight arm03/29/2025 11:07 AM Digna Hollingsworth RNBP GjjhwqGchnneoqm16/19/2025 11:07 AM Digna Hollingsworth RN * Height and WeightQuestionAnswerDate of MzvlyzataeDwrviiBielnq4776/19/2025 11:06 AM Digna Hollingsworth RNWeight3061.7503/29/2025 11:06 AM Digna Hollingsworth RNHeight IupuoiPhoafp63/19/2025 11:06 AM Digna Hollingsworth RNBSA (Calculated - sq m)2.0703/29/2025 11:06 AM Digna Hollingsworth RNBMI (Calculated)27.512 11:06 AM Digna Hollingsworth RNWeight in (lb) to have BMI = 48365.9105/30/2024 11:06 AM Digna Hollingsworth RN * RespiratoryQuestionAnswerDate of AssessmentAuthorRespiratory (WDL)WDL 03/29/2025 11:06 AM Digna Hollingsworth RN * Abuse Indicator ScreeningQuestionAnswerDate of AssessmentAuthorSafe in HomeYes 03/29/2025 11:07 AM Digna Hollingsworth RNDo you feel safe in your relationship(s)?Yes03/29/2025 11:07 AM Digna Hollingsworth RNAre you in immediate danger?No03/29/2025 11:07 AM Digna Hollingsworth RN * Blood HistoryQuestionAnswerDate of AssessmentAuthorHave you had a blood transfusion?No03/29/2025 11:06 AM Digna Hollingsworth RNWould you accept a blood transfusion in a life-threatening situation?Yes03/29/2025 11:06 AM Digna Hollingsworth RN * Medical Advance DirectiveQuestionAnswerDate of AssessmentAuthorDo you have a Medical Advance Directive?No03/29/2025 11:06 AM Digna Hollingsworth RNMedical Advance Directive InformationPatient would not like rcmukbdtgyn76/19/2025 11:06 AM Digna Hollingsworth RN * Influenza Vaccine Screen - January Through JuneQuestionAnswerDate of AssessmentAuthorHave you had an influenza vaccine this season?No03/29/2025 11:06 AM Digna Hollingsworth RN * Vitals TimerQuestionAnswerDate of AssessmentAuthorRestart Vitals TimerYes 03/29/2025 11:07 AM Digna Hollingsworth RN * CardiovascularQuestionAnswerDate of AssessmentAuthorCardiovascular (WDL)WDL 03/29/2025 11:06 AM Digna Hollingsworth RN * TB ScreeningQuestionAnswerDate of AssessmentAuthorPatient has prolonged cough? No03/29/2025 11:06 AM Digna Hollingsworth RNPatient has bloody cough?No 03/29/2025 11:06 AM Digna Hollingsworth RNPatient has fever?No03/29/2025 11:06 AM Digna Hollingsworth RNPatient has night sweats?No03/29/2025 11:06 AM Digna Toro RNPatient has weight loss?No03/29/2025 11:06 AM Digna Hollingsworth RNPatient has positive PPD?No03/29/2025 11:06 AM Digna Hollingsworth RN * BEE (kcal)AnswerDate of NockmwxvsvRythwt575444/19/2025 11:06 AM Digna Hollingsworth RN * VitalsQuestionAnswerDate of CiufozmtrcIkpolvLL341/7603/29/2025 11:07 AM Digna Toro RNTemp97.9105/30/2024 11:07 AM Digna Hollingsworth RNTemp srcOral 03/29/2025 11:07 AM Digna Hollingsworth RNPulse7003/29/2025 11:07 AM Digna Hollingsworth, ITXpnc3738 11:07 AM Digna Hollingsworth, LPAkQ78702/19/2025 11:07 AM Digna Hollingsworth, KINDRAHeart Rate AcpzseMcgpxra92/19/2025 11:07 AM Digna Hollingsworth, RNBP LocationRight arm03/29/2025 11:07 AM Digna Hollingsworth RNBP RyyoqvFpiuvitwb61/19/2025 11:07 AM Digna Hollingsworth RN * Height and WeightQuestionAnswerDate of RdyetqbybuBeoyekCuhtrs2679/19/2025 11:06 AM Digna Hollingsworth RNWeight3061.7503/29/2025 11:06 AM Digna Hollingsworth RNHeight CevhnpDvkgsv64/19/2025 11:06 AM Digna Hollingsworth RNBSA (Calculated - sq m)2.0703/29/2025 11:06 AM Digna Hollingsworth RNBMI (Calculated)27.512 11:06 AM Digna Hollingsworth RNWeight in (lb) to have BMI = 00038.9105/30/2024 11:06 AM Digna Hollingsworth RN documented as of this encounter Mental Status * VitalsQuestionAnswerEntry WsjdBrhijrJQ538/7603/29/2025 11:07 AM Digna Hollingsworth RNTemp97.9105/30/2024 11:07 AM Digna Hollingsworth RNTemp srcOral 03/29/2025 11:07 AM Digna Hollingsworth KWAgsfu6659/19/2025 11:07 AM Digna Hollingsworth JSGiyz8849 11:07 AM Digna Hollingsworth, XCXlF77472/19/2025 11:07 AM Digna Hollingsworth, RNHeart Rate MgkzdjSiznmxl18/19/2025 11:07 AM Digna Hollingsworth, KINDRABP LocationRight arm03/29/2025 11:07 AM Digna Hollingsworth, KINDRABP ZlhrzlLndjpeogb11/19/2025 11:07 AM Digna Hollingsworth RN * RespiratoryQuestionAnswerEntry DateAuthorRespiratory (WDL)WDL105/30/2024 11:06 AM Digna Hollingsworth RN documented in this encounter Patient Instructions * Patient Instructions* Digna Evans RN - 03/29/2025 10:45 AM EST Your surgery/procedure is scheduled at [facility] on 04/09/25 at 1pm Arrival Time 11 am [facility] Address: [address] [place] [address], [facility], [address] [place] [address] in the Emergency Center Parking lot. Report to the front office supervisor in the Emergency/Surgery Registration lobby of the hospital. Notify your SURGEON if you develop any illness such as a cold, cough, fever, sore throat, vomiting or are hospitalized between now and your surgery. Please call Pre-Admission Clinic at [phone] if you have any questions prior to surgery. For questions the morning of surgery, call the Pre-op Department at [phone]. Medication Instructions (Do not stop your medications without consulting the prescribing physician). Take the following medications the morning of surgery with a sip of water: Carvedilol, Suboxone, iron Diabetic or Weight loss medications: HOLD n/a LAST DOSE n/a Take inhalers as prescribed the morning of surgery. Due to the risk associated with these medications. If these medications are not held per instruction below, your surgery is at an increased risk for cancellation SGLT2 Medications- Hold 3 days prior to surgery: Jardiance, Empagliflozin, Farxiga, Dapagliflozin, Invokana, Canagliflozin, Trijardy, Synjardy GLP-1 Medications (Injection or Pill)- If taken daily hold day of surgery. If taken weekly, hold 1 week prior to surgery: Adlyxin, Byetta, Bydureon, Ozempic, Rybelsus,Trulicity, Victoza, Wegovy, Lixisenatide, Exenatide, Semaglutide, Dulaglutide, Liraglutide GIP/GLP-1(Injection or Pill)- If taken daily hold day of surgery. If taken weekly, hold 1 week prior to surgery: Mounjaro . Blood thinners: Please contact your prescribing physician regarding a stop/hold date for these medications. Medications such as Coumadin, Heparin, Aspirin, Plavix, Eliquis, Pradaxa Diabetics: If you take insulin, contact your prescribing doctor for instructions on how to manage this the night before and the morning of surgery. Non-steriodal Anti-Inflammatory Drugs (NSAIDS)- Hold 3 days prior to surgery unless otherwise directed by your surgeon. Vitamins/Herbal Products: You may continue to take your prescribed vitamins such as potassium, iron, vitamin B, vitamin C, or multivitamin unless specifically instructed by your surgeon to hold. STOPtaking all herbal products/teas one week prior to your surgery. Marijuana: Stop marijuana 72 hours prior to surgery, stop CBD oil 48 hours prior to surgery. If you have been given bowel prep instructions by your surgeon, please call the surgeon's office with any questions about these instructions. What do I do the day of Surgery? Age 2 through adult - Stop all solids by midnight, You may have a smalll amount of clear liquids up to 2 hours before surgery, unless otherwise instructed by your surgeon Clear liquids are: water, sports drinks such as Gatorade or G2, or apple juice. You may NOT have: tube feedings, dairy products, alcoholic beverages, orange juice, or any liquids with solids or pulp in it If applicable, shower again with CHG soap the morning of your surgery. What do I need to do to prepare for surgery? If you will be going home the same day as your surgery, arrange for an adult over [address] Riding in a bus or taxi by yourself is not permitted. You should not smoke or drink alcohol 24 hours before your surgery. Alcohol thins the blood and may cause bleeding problems during surgery Smoking increases the risk of breathing problems after surgery. It also increases your risk for infection, and may delay healing. Do not use lotions, creams, powders, perfume, make up, cologne or after-shaves day of surgery. Remove ALL jewelry including wedding rings, body piercings, hair extensions that contain metal, nail eritrean, make-up, and contact lens. You may brush your teeth the morning of surgery, but do not swallow the water. Wear your dentures and partial plates to the hospital (no adhesive). Shower the night before your procedure. If applicable, use the CHG (chlorhexidine gluconate) soap or wipes. Please place clean linens on your bed after showering. Do not allow your pets in your bed. Please be advised, [facility] has transitioned to a cashless payment system. What should I bring to the hospital? Eyeglass or contact lens case If you will be spending the night, please bring personal care items and leave them in the car untilyou are taken to your room after surgery. Leave ALL valuables at home. If any of these instructions conflict with those you received from the surgeon, please seek clarification from your surgeon's office. DEEP BREATHING EXERCISES This exercise helps promote good air exchange and helps to prevent pneumonia after surgery. Breathe in slowly and deeply through the nose. Hold your breath for a few seconds and then exhale slowly through the mouth. Repeat this three times and then cough. Coughing helps to clear your lungs. If you have had a surgery with an incision into your abdomen or chest, press gently against your incision with a pillow or a folded blanket when you cough. Please be aware - it may not be valencia to cough following some types of surgeries involving the eyes,ears, sinuses and throat. Always follow your doctor's instructions. LEG EXERCISES These exercises help promote good circulation and help to prevent blood clots after surgery. Point your toes to the ceiling and then point them to the wall. Do this slowly about 15-20 times. You may also move your feet in circles. Do the exercise that is most comfortable for you. If you have had surgery involving your shoulder or arm, we recommend you move your fingers. PRACTICING We ask that you begin practicing these exercises before your surgery. After surgery try to do both exercises at least every 2 hours during the day and early evening. Surgical Site Infection Prevention What is a Surgical Site Infection (SSI)? Infection can happen to the area of the body where surgery is done. This is called a surgical site infection (SSI). A SSI does not happen very often. What are some of the things that hospitals are doing to prevent SSIs? Soap and water or alcohol hand rub are used before and after caring for each patient. Special soap is used to clean surgery workers hands and arms just before the surgery. Masks, gowns, gloves and hair covers are worn during the surgery to keep the area clean. Hair in the surgery area may be removed with clippers (not razors). A special soap that kills germs is used to clean the skin at the surgery site. Antibiotics may be given before the surgery starts. What can you do to prevent SSIs? Before surgery: You may be asked to shower or bathe with a special soap that kills germs the night before and the day of surgery. Use the soap as you were told. Place clean sheets on your bed the night before surgery and do not allow your pets in your bed. If you smoke or vape, stop or cut down. This creates a stress response in your body that increases inflammation, constricts blood vessels and deprives your tissues of oxygen. After surgery, this stress response disrupts the travel of oxygen, nutrients, and blood to your surgical site, interfering with the wound healing process. It also decreases the ability of your cells to fight infection. Ask your doctor about ways to quit. If you have high blood sugars or diabetes please talk with your doctor about having healthy blood sugar levels to promote healing. Do not shave near where you will have surgery. Shaving can irritate the skin and make it easier to get and infection. After surgery: Be sure that the doctors and nurses clean their hands before and after touching you. Be sure your family and friends clean their hands before and after visiting you. Do not be afraid to remind them. Always wash your hands before touching your incisional area. * Care for your wound at home as told by your doctor or nurse * Call your doctor right away if you have fever, redness, increased pain, or drainage at the surgery site. Can SSIs be treated? Antibiotics are used to treat SSI. Some patients may need another surgery to treat the infection. The doctor will discuss treatment options with you. Further questions? Contact the doctor, nurse or the Infection Prevention and Control department if you have any questions. PATIENT RIGHTS AND RESPONSIBILITIES As a patient at [facility], you have the right to: Receive medical care and be informed of who is taking care of you Be treated with dignity and respect Have a family member/outbound sales representative of choice and your physician notified of your admission Receive information and actively participate in decisions about your care and treatment Refuse care, treatment and services Decide who may provide your support and speak for you Access jehovah's witness and spiritual services Participate in ethical issues and questions about your care Receive private and confidential care Have appropriate assessment and management of your pain Know guest visitation restrictions or limitations Have an advance directive Access protective services Consent or refuse to participate in research studies or production or recordings, films or other images Have resolution of your complaints Receive information of hospital charges and payment methods Patient/patient outbound sales representative responsibilities are to: Provide information about health status to facilitate care, treatment and services Follow the treatment, plan, keep appointments and speak up when you do not understand the plan Respect the rights of other patients and healthcare personnel Follow organizational rules and regulations that support quality care and a safe environment Fulfill financial obligations as promptly as possible Bathing Before Surgery- Patients greater than 2 months of age You can help to lower your chance of infection at the site of your surgery by showering or bathing with a special soap called chlorhexidine gluconate (CHG). Germs live on your skin. This special soapwill help lower the amount of germs so they do not get into your surgery site. Special points to know: Do not use this soap if you know that you are allergic to CHG. Shower or bathe with CHG the night before and the morning of surgery. Do not shave the area of your body where the surgery will be done within 7 days of surgery. The CHG may make your skin a little dry, but do not use lotion. Steps for Bathing: Wash your hair as usual with your normal shampoo. Rinse your hair and body well after you shampoo to get rid all of the shampoo. Wash gently with the CHG from the neck down, but do not scrub the skin to hard. Be sure to wash thearea of your surgery very well. If showering, turn the water off while washing and then turn the water back onto rinse. Do not get CHG in the genital (private) area. Do not get CHG in the eyes, ears, nose or mouth. (If the soap gets into the eyes, flush them immediately with water). Do not wash with regular soap after CHG is used. Pat skin dry with a soft, clean towel. Patient should sleep in freshly laundered night clothes and report for surgery in clean clothes. Place freshly laundered linens on your bed after bathing with wipes or soap. Do not allow pets in your bed documented in this encounter Plan of Treatment DateTypeDepartmentCare Team (Latest Contact Info)Hvyophtzycr09/30/2025 12:15 PM ESTHospital Encounter [facility] Surgery [address] [place] [address] [place] [address] [place] [address] [address] [place] [address] 04/09/2025 12:15 PM EST - 04/09/2025 2:15 PM ESTSur[facility] [address] [place] [address] Dionicio Ford MD [address] [place] [address] [address] [place] [address] DAVINCI REPAIR HERNIA INGUINALNamePriorityAssociated DiagnosesDate/TimeDAVINCI REPAIR HERNIA INGUINAL INGUINAL HERNIA RIGHT 04/09/2025 12:15 PM ESTdocumented as of this encounter Goals GoalPatient Goal TypeAssociated ProblemsRecent ProgressPatient-Stated?Author Autogenerated Goal Care PlanAutogenerated ProblemGriselda Rojas Adocumented as of this encounter Procedures Procedure NamePriorityDate/TimeAssociated DiagnosisCommentsCBC (NO DIFF)Routine 03/29/2025 11:28 AM EST Pre-op testing TYPE AND FCJTRKKbqrmgc11/19/2025 11:28 AM EST Pre-op testing COMPREHENSIVE METABOLIC ZDWBZIaanxot24/19/2025 11:28 AM EST Pre-op testing documented in this encounter Results * Type and screen(includes indirect sanjana) (03/29/2025 11:28 AM EST)Component ValueRef RangeTest MethodAnalysis TimePerformed AtPathologist SignatureABOA 03/29/2025 4:10 PM ESTTFL BB - XZEYTLKEXOnpnnkxr88/19/2025 4:10 PM ESTTFL BB - WELLSKYAntibody ZvdbwxQgpogkug51/19/2025 4:10 PM ESTTFL BB - WELLSKYSpecimen (Source)Anatomical Location / LateralityCollection Method / VolumeCollection TimeReceived TimeBloodVenous blood / UnknownVenipuncture / Bzyvtff2403/29/2025 11:28 AM EST03/29/2025 11:29 AM EST Narrative Authorizing ProviderResult TypeResult StatusStmignon Ford [facility] TEST ORDERABLESEdited Result - FinalPerforming OrganizationAddressCity/State/ZIP Code Phone Number ZRZ [facility] - ZQJAIUC [address] [place] [address], * (ABNORMAL) Comprehensive metabolic panel (03/29/2025 11:28 AM EST)Component ValueRef RangeTest MethodAnalysis TimePerformed AtPathologist SignatureSODIUM [id number] - 146 mmol/L105/30/2024 1:21 PM [facility] POTASSIUM3.3(L)3.5 - 5.0 mmol/L105/30/2024 1:21 PM [facility] SXBACHZSNYOSDPUPHZ225(H)98 - 109 mmol/L105/30/2024 1:21 PM [facility] LABORATORYCARBON MXATXWH31(L)22 - 32 mmol/L105/30/2024 1:21 PM [facility] LABORATORYANION GAP75 - 15 mmol/L105/30/2024 1:21 PM [facility] LABORATORYBLOOD UREA ABIIHISW011 - 23 mg/dL03/29/2025 1:21 PM [facility] LABORATORYCREATININE1.48(H)0.60 - 1.30 mg/dL03/29/2025 1:21 PM [facility] LABORATORYComment:METHOD TRACEABLE TO IDMS LBHLBJXVRBUWKGJ353(H)65 - 99 mg/dL03/29/2025 1:21 PM [facility] LABORATORYCALCIUM8.4(L)8.5 - 10.5 mg/dL03/29/2025 1:21 PM [facility] LABORATORYTOTAL PROTEIN5.8(L)6.0 - 8.0 g/dL03/29/2025 1:21 PM [facility] LABORATORYALBUMIN3.43.2 - 5.3 g/dL03/29/2025 1:21 PM [facility] LABORATORYALKALINE YRPLGJXRXGV49450 - 130 U/L105/30/2024 1:21 PM [facility] ESYHTKLTEVFUI492(H)<=41 U/L105/30/2024 1:21 PM [facility] WAKEBBCEXUIBK926(H)<=40 U/L105/30/2024 1:21 PM [facility] LABORATORYBILIRUBIN,TOTAL0.70.3 - 1.2 mg/dL03/29/2025 1:21 PM [facility] LABOR[facility]ORYEGFR Non-Race Lnwjamimg89(L)>=60 ml/min/1.73sq.m 03/29/2025 1:21 PM [facility] LABORATORYComment: Reported eGFR is based on the CKD-EPI 2020 equation that does not use a race coefficient. Specimen (Source)Anatomical Location / LateralityCollection Method / Volume Collection TimeReceived TimeBloodVenous blood / UnknownVenipuncture / Unknown 03/29/2025 11:28 AM EST03/29/2025 11:29 AM EST Narrative Authorizing ProviderResult TypeResult StatusStmignon Ford MDLAB BLOOD ORDERABLESFinal ResultPerforming OrganizationAddressCity/State/ZIP CodePhone Number [facility] [address] [place] [address], * (ABNORMAL) CBC without diff (03/29/2025 11:28 AM EST)ComponentValueRef Range Test MethodAnalysis TimePerformed AtPathologist SignatureWBC6.24 - 11 10^9/L 03/29/2025 1:45 PM [facility] LABORATORYRBC Count3.60(L)4.1 - 5.7 10^12/L105/30/2024 1:45 PM [facility] LABORATORYHemoglobin 11.6(L)13 - 17 g/dL03/29/2025 1:45 PM [facility] Jqnikqgggj97.4(L)39 - 50 %03/29/2025 1:45 PM [facility] MPCYJRYNZIXAG2312 - 100 fL03/29/2025 1:45 PM [facility] IHZSVBJJAZKUB09.427 - 34 pg03/29/2025 1:45 PM [facility] ZUYMDPWUDCAJXH71.932 - 36 g/dL03/29/2025 1:45 PM [facility] XRWPEHFANOFGP83.1(H)11.5 - 15 %03/29/2025 1:45 PM [facility] LABORATORYPlatelet Vtuas849739 - 450 10^9/L105/30/2024 1:45 PM [facility] LABORATORYMPV9.07 - 12 fL03/29/2025 1:45 PM [facility] LABORATORYSpecimen (Source)Anatomical Location / Laterality Collection Method / VolumeCollection TimeReceived TimeBloodVenous blood / UnknownVenipuncture / Yfovgvp3503/29/2025 11:28 AM EST03/29/2025 11:29 AM EST Narrative Authorizing ProviderResult TypeResult StatusStmignon Ford MDLAB BLOOD ORDERABLESFinal ResultPerforming OrganizationAddressCity/State/ZIP CodePhone Number [facility] [address] [place] [address], documented in this encounter Visit Diagnoses Diagnosis Pre-op testing- Primary Unspecified pre-operative examination documented in this encounter Additional Health Concerns Active ProblemsNoted DateDiagnosed DateAutogenerated Izohscv6412/06/2024documented as of this encounter Care Teams Team MemberRelationshipSpecialtyStart DateEnd Date Charli aCstillo MD [address] [place] [address] PCP - HvsictpGszuulknmv01/19/25 Jerry Pina Vascular Suxgdih53/29/25documented as of this encounter
--- NOTE | 2025-04-08 | US_ITS ---
The [address] [address] Patient Name: DONALDO SONG MRN: [id number] date: 1970 Sex: M Assigned Patient Location: [place] Current Patient Location: Accession/Order Number: [id number] Exam Date: 04/08/2025 19:52 Report Date: 04/09/2025 11:34 At the request of: LILIANA ECHOLS DO Procedure: US right upper quadrant LIMITED RIGHT UPPER QUADRANT ABDOMINAL ULTRASOUND CLINICAL HISTORY: Intermittent abdominal pain for the past few months. Elevated liver function R79.89, K85.90 COMPARISON: None The gallbladder is physiologically distended without shadowing calculi, wall thickening or pericholecystic fluid. No intrahepatic biliary dilatation is evident. The common duct is prominent measuring 11 - 12 mm. There are no filling defects within the imaged segment.. The liver shows coarsened echotexture. No focal intrahepatic masses are seen. There is appropriate hepatopetal flow within the main portal vein. The visualized portions of the pancreas show no significant sonographic abnormality. Evaluation of the right kidney reveals no hydronephrosis or fluid within Méndez's pouch. US/US right upper quadrant IMPRESSION: NO GALLBLADDER PATHOLOGY. COMMON DUCT PROMINENCE OF UNCLEAR ETIOLOGY. Impression dictated by: Paige Orellana M.D. 04/09/2025 11:34 AM Dictation Location: [place] [address] Electronically authenticated by: [id number] Y Date: 04/09/2025 11:34
--- OUTSIDE RECORDS SUMMARY | 2025-04-08 19:27 | XMS_ITS | Clinical Summary ---
Author Organization [employer] s tem Address [id number] [address] [place] [address] Care Team Providers Care Business Test Analyst Name Role Phone Lesley Castillo Primary Care Provider [phone] Allergies No known active allergies Medications MedicationSigDispense [...] clinician) Active Problems ProblemNoted DateDiagnosed DateAcute renal tjxqlmj2903/29/20255625Fhigzl07/19/8999F48 fdwvvyuzpl64/19/2025Encounter for screening for /19/2025Gastritis 03/29/20253805Iwrtuufejwqw02/19/2025Insomnia, vhylfmpqolt21/19/2025Intermittent vkqssmgrovak09/19/2025Iron deficiency hanqgs5403/29/2025Low back pain, unspecified 03/29/2025Metabolic izfsnjaa66/19/2025Nausea and rkhxrniq08/19/2025Noninfective gastroenteritis and colitis, cwkuqbuygle57/19/2025Opioid abuse, uncomplicated 03/29/2025Other chronic pain03/29/2025Pain in left wrist03/29/2025Pain in right knee03/29/2025Postoperative pain03/29/2025Post-renal acute kidney injury 03/29/2025Non-recurrent unilateral inguinal hernia without obstruction or /11/2025igarette nicotine dependence without zjxjpqhzjaxp03/07/2025 PAD (peripheral artery disease)07/16/2024Substance use07/16/2024bnormal ultrasound of jwfroe1204/25/2024Iliac artery occlusion, right04/25/2024Right inguinal gfdpto3004/25/2024 Overview (03/29/2025): right Hedxhbr3804/17/2024Primary xpalwjqfnnxz62/07/2025ute recurrent maxillary sahkwrqqx81/08/2019Pain in right dokwhkeg81/09/2018Anxiety disorder, unspecified 04/28/2015 Encounters DateTypeDepartmentCare HpxpQwyjyqudpmt91/19/2025 10:45 AM ESTProcedure visit [facility] On [address] [address] Pre-op testing (Primary Dx)03/29/20259353Ggyqdw75/10/2025 1:30 PM ESTOffice Visit [facility] [address] [place] [address] Theo Farris MD Preop cardiovascular exam (Primary Dx); Hypertension, unspecified type03/14/2025bstract [facility] [address] [place] [address] External, Scanning Provider 02/18/2025[facility]phone [facility] [address] [place] [address] Qian Keyes 02/11/2025[facility]phone [facility] [address] [place] [address] Qian Keyes 02/08/2025Orders Only [facility] [address] [facility] [address] [place] [address] Mira Hall Pre-op evaluation (Primary Dx)02/06/2025 1:45 PM EDTProcedure visit [facility] On [address] [address] Pre-op testing (Primary Dx)from Last 3 Months Family History Medical HistoryRelationNameCommentsGlaucomaFatherHeart attackMotherHypertension MotherAnesthesia problemsNeg HxRelationNameStatusCommentsFatherAliveMother Social History Tobacco UseTypesPacks/DayYears UsedDateSmoking Tobacco: Every DayCigarettes0.530 Passive Smoke Exposure: NeverSmokeless Tobacco: Never Tobacco Cessation:Ready to Q uit: Not Asked; Counseling Given: Not Answered Comments:Decreased to 6 cigarettes a day Alcohol UseStandard Drinks/YkkmMkfznrspJef50 (1 standard drink = 0.6 oz pure alcohol)2 shots per dayAUDIT-CAnswerDate RecordedQ1: How often do you have a drink containing alcohol?4 or more times a week03/20/2025verage Number of DrinksNot on file03/20/2025Frequency of Binge DrinkingNot on file03/20/2025 ChildcareAnswerDate OmblcqguJinblqzysZbnhdbh32/12/2019EmploymentAnswerDate EyqkbxjrZjhdssclulJezylqs47/12/2019Hunger ScreeningAnswerDate RecordedWithin the past 12 months we [...] Last Filed Vital Signs Vital SignReadingTime TakenCommentsBlood Hdncydwz372/7603/29/2025 11:07 AM EST Bhvyo490203/29/2025 11:07 AM BRKTcwavufnoms59.6 ??C (97.9 ??F)03/29/2025 11:07 AM ESTRespiratory Vpjy388605/30/2024 11:07 AM ESTOxygen Afhruskglu40%03/29/2025 11:07 AM ESTInhaled Oxygen Concentration--Vjwync90.8 kg (191 lb 5.8 oz)03/29/2025 11:06 AM JIQZxopst790.8 cm (5' 10 )03/29/2025 11:06 AM ESTBody Mass Index27.46 03/29/2025 11:06 AM EST Plan of Treatment DateTypeDepartmentCare Team (Latest Contact Info)Oadtnglhogz71/30/2025 12:15 PM ESTHospital Encounter [place] [address] [place] [address] Dionicio Ford MD [address] [place] [address] [address] [place] [address] 04/09/2025 12:15 PM EST - 04/09/2025 2:15 PM ESTSurgery [facility] [address] [address] Dionicio Ford MD [address] [place] [address] [address] [place] [address] DAVINCI REPAIR HERNIA INGUINALNamePriorityAssociated DiagnosesDate/TimeDAVINCI REPAIR HERNIA INGUINAL INGUINAL HERNIA RIGHT 04/09/2025 12:15 PM ESTHealth MaintenanceDue DateLast DoneCommentsStatin Use: Xhlyysoibcughp91/16/1972Tobacco Bgboadpqrh23/16/1972Depression Screening 1983Adult BMI Follow Up Plan07/25/1989DTaP,Tdap and Td Vaccines (1 - Tdap) 07/25/1990Zoster (Shingles) Vaccine (1 of 2)07/25/2021Influenza Vaccine 5Adult BMI Qgaynverv18Tobacco Nigydwubj31/19/2026 03/29/2025 Goals GoalPatient Goal TypeAssociated ProblemsRecent ProgressPatient-Stated?Author Autogenerated Goal Care PlanAutogenerated Griselda Valles Medical Devices Not on file Procedures Procedure NamePriorityDate/TimeAssociated DiagnosisCommentsTYPE AND SCREEN Wfxjojg5903/29/2025 11:28 AM EST Pre-op testing CBC (NO DIFF)Chcghdc1903/29/2025 11:28 AM EST Pre-op testing COMPREHENSIVE METABOLIC LFWRMRcfsgih24/19/2025 11:28 AM EST Pre-op testing POCT FOVTqljaim28/10/2025 Preop cardiovascular exam Hypertension, unspecified type REPEATED NRVYAQuvjyus51/29/2025 2:13 PM EDT Pre-op testing TYPE AND UDQWDEAtztwws30/29/2025 2:13 PM EDT Pre-op testing CBC WITH AUTO JWXUMHVCLFLUNcdqxrc93/29/2025 2:13 PM EDT Pre-op testing COMPREHENSIVE METABOLIC ALEBRTeoffpl05/29/2025 2:13 PM EDT Pre-op testing ECG 12-FXBTRrbtvpj38/29/2025 2:03 PM EDT Pre-op testing from Last 3 Months Results * (ABNORMAL) CBC without diff (03/29/2025 11:28 AM EST)ComponentValueRef Range Test MethodAnalysis TimePerformed AtPathologist SignatureWBC6.24 - 11 10^9/L 03/29/2025 1:45 PM [facility] LABORATORYRBC Count3.60(L)4.1 - 5.7 10^12/L105/30/2024 1:45 PM [facility] LABORATORYHemoglobin 11.6(L)13 - 17 g/dL03/29/2025 1:45 PM [facility] Axskrzalcz01.4(L)39 - 50 %03/29/2025 1:45 PM [facility] JTVOWHPVXWQEI0348 - 100 fL03/29/2025 1:45 PM [facility] ZKZTEXCKNUDGR60.427 - 34 pg03/29/2025 1:45 PM [facility] FIARUFNHKMUMNI59.932 - 36 g/dL03/29/2025 1:45 PM [facility] SWPRIXFLNLGKA71.1(H)11.5 - 15 %03/29/2025 1:45 PM [facility] LABORATORYPlatelet Vyitj355107 - 450 10^9/L105/30/2024 1:45 PM [facility] LABORATORYMPV9.07 - 12 fL03/29/2025 1:45 PM [facility] LABORATORYSpecimen (Source)Anatomical Location / Laterality Collection Method / VolumeCollection TimeReceived TimeBloodVenous blood / UnknownVenipuncture / Zptgjte7703/29/2025 11:28 AM EST03/29/2025 11:29 AM EST Narrative Authorizing ProviderResult TypeResult StatusStmignon EDUARDO BLOOD ORDERABLESFinal ResultPerforming OrganizationAddressCity/State/ZIP CodePhone Number [facility] [address] [place] [address], * Type and screen(includes indirect sanjana) (03/29/2025 11:28 AM EST) Only the most recent of2 resultswithin the time period is included. ComponentValueRef RangeTest MethodAnalysis TimePerformed AtPathologist Signature ABOA105/30/2024 4:10 PM ESTTFL BB - SYRXMVFETJsiosote55/19/2025 4:10 PM ESTTFL BB - WELLSKYAntibody QrzcufKfbqbwjy42/19/2025 4:10 PM ESTTFL BB - WELLSKYSpecimen (Source)Anatomical Location / LateralityCollection Method / VolumeCollection TimeReceived TimeBloodVenous blood / UnknownVenipuncture / Wdxocjo4703/29/2025 11:28 AM EST03/29/2025 11:29 AM EST Narrative Authorizing ProviderResult TypeResult StatusDionicio TORRESOOD BANK TEST ORDERABLESEdited Result - FinalPerforming OrganizationAddressCity/State/ZIP Code Phone Number [facility] - [facility] [place] [address], * (ABNORMAL) Comprehensive metabolic panel (03/29/2025 11:28 AM EST) Only the most recent of2 resultswithin the time period is included. ComponentValueRef RangeTest MethodAnalysis TimePerformed AtPathologist Signature MWNPBT738477 - 146 mmol/L105/30/2024 1:21 PM [facility] LABORATORYPOTASSIUM3.3(L)3.5 - 5.0 mmol/L105/30/2024 1:21 PM [facility] JPZVKULLBAOCTCZRNO606(H)98 - 109 mmol/L105/30/2024 1:21 PM [facility] LABORATORYCARBON RGUJAKZ92(L)22 - 32 mmol/L105/30/2024 1:21 PM [facility] LABORATORYANION GAP75 - 15 mmol/L105/30/2024 1:21 PM [facility] LABORATORYBLOOD UREA MRFBLZUQ933 - 23 mg/dL 03/29/2025 1:21 PM [facility] LABORATORYCREATININE1.48(H)0.60 - 1.30 mg/dL03/29/2025 1:21 PM [facility]ORATORYComment: METHOD TRACEABLE TO IDME UDYWXOXZRFYOTII533(H)65 - 99 mg/dL03/29/2025 1:21 PM [facility] LABORATORYCALCIUM8.4(L)8.5 - 10.5 mg/dL03/29/2025 1:21 PM [facility] LABORATORYTOTAL PROTEIN5.8(L)6.0 - 8.0 g/dL 03/29/2025 1:21 PM [facility] LABORATORYALBUMIN3.43.2 - 5.3 g/dL03/29/2025 1:21 PM [facility] LABORATORYALKALINE BVOEOTZFVHQ73743 - 130 U/L105/30/2024 1:21 PM [facility] YAXIFCDXDPIJZ612(H)<=41 U/L105/30/2024 1:21 PM [facility] KDENGTELQFRZS704(H)<=40 U/L105/30/2024 1:21 PM [facility] LABORATORYBILIRUBIN,TOTAL0.70.3 - 1.2 mg/dL03/29/2025 1:21 PM [facility]ORYEGFR Non-Race Txfvjxdfv14(L)>=60 ml/min/1.73sq.m105/30/2024 1:21 PM [facility] LABORATORYComment: Reported eGFR is based on the CKD-EPI 2020 equation that does not use a race coefficient. Specimen (Source)Anatomical Location / LateralityCollection Method / Volume Collection TimeReceived TimeBloodVenous blood / UnknownVenipuncture / Unknown 03/29/2025 11:28 AM EST03/29/2025 11:29 AM EST Narrative Authorizing ProviderResult TypeResult StatusDionicio Ford MDLAB BLOOD ORDERABLESFinal ResultPerforming OrganizationAddressCity/State/ZIP CodePhone Number [facility] [address] [place] [address], [place] [phone] * POCT EKG (03/20/2025) Narrative Authorizing ProviderResult TypeResult StatusTheo Farris MDECG ORDERABLES Edited Result - FinalPerforming OrganizationAddressCity/State/ZIP CodePhone Number MANUALLY TRANSCRIBED RESULTS * ABO Rh Repeat (02/06/2025 2:13 PM EDT)ComponentValueRef RangeTest Method Analysis TimePerformed AtPathologist AzvduvlioKIGB75/29/2025 6:45 PM EDTTTH SHAHIDA - TRUVWZDHLPghfoxbk89/29/2025 6:45 PM EDTTTH BB - DUNGSpecimen (Source) Anatomical Location / LateralityCollection Method / VolumeCollection Time Received TimeBloodVenous blood / UnknownVenipuncture / Txhmgtt1102/06/2025 2:13 PM EDT1 2:14 PM EDT Narrative Authorizing ProviderResult TypeResult StatusDionicio Ford MDBLOOD BANK TEST ORDERABLESFinal ResultPerforming OrganizationAddressCity/State/ZIP CodePhone Number [facility] SHAHIDA - DUNG [address] [address], [place] * (ABNORMAL) CBC auto differential (02/06/2025 2:13 PM EDT)ComponentValueRef RangeTest MethodAnalysis TimePerformed AtPathologist SignatureWBC6.74 - 11 x10E9/L1 5:31 PM [facility] LABORATORYRBC Count3.56 (L)4.1 - 5.7 X10E12/L1 5:31 PM [facility] Lspelyarkc17.3(L)13 - 17 g/dL02/06/2025 5:31 PM [facility] YOKGWZYJCTPxvfyshbxu49.0(L)39 - 50 %02/06/2025 5:31 PM [facility] QJXMSJPROHMNJ2995 - 100 fL02/06/2025 5:31 PM [facility] CRPRVVJQCQCJS54.927 - 34 pg02/06/2025 5:31 PM [facility] PHRLLXYNRJEJCG85.332 - 36 g/dL02/06/2025 5:31 PM [facility] DEKBFNBCMUYGP17.911.5 - 15 %02/06/2025 5:31 PM [facility] LABORATORYPlatelet Ilwkm549970 - 450 X10E9/L1 5:31 PM [facility] LABORATORYMPV8.07 - 12 fL02/06/2025 5:31 PM [facility] LABORATORYNeutrophils %61.5%02/06/2025 5:31 PM [facility] LABORATORYLymphocytes %24.4%02/06/2025 5:31 PM [facility] LABORATORYMonocytes %10.5%02/06/2025 5:31 PM [facility] LABORATORYEosinophils %2.5%02/06/2025 5:31 PM [facility] LABORATORYBasophils %1.1%02/06/2025 5:31 PM [facility] LABORATORYNeutrophils Absolute (A)4.11.5 - 6.6 10*3/uL 02/06/2025 5:31 PM [facility] LABORATORYLymphocytes Absolute 1.61.0 - 3.5 10*3/uL02/06/2025 5:31 PM [facility] Monocytes Absolute0.70.0 - 0.9 10*3/uL02/06/2025 5:31 PM [facility] LABORATORYEosinophils Absolute0.20.0 - 0.4 10*3/uL02/06/2025 5:31 PM [facility] LABORATORYBasophils Absolute0.10.0 - 0.2 10*3/uL 02/06/2025 5:31 PM [facility] LABORATORYDifferential Type AUTOMATED UMEPFLZFPQDA98/29/2025 5:31 PM [facility] LABORATORYSpecimen (Source)Anatomical Location / LateralityCollection Method / VolumeCollection TimeReceived TimeBloodVenous blood / UnknownVenipuncture / Htitqjv7702/06/2025 2:13 PM EDT1 2:14 PM EDT Narrative Authorizing ProviderResult TypeResult StatusStmignon EDUARDO BLOOD ORDERABLESFinal ResultPerforming OrganizationAddressCity/State/ZIP CodePhone Number [facility] [address] [place] [address], * ECG 12 lead (02/06/2025 2:03 PM EDT)Specimen (Source)Anatomical Location / LateralityCollection Method / VolumeCollection TimeReceived Time02/06/2025 2:03 PM EDT Narrative TRACEMASTERVUE - 02/07/2025 5:37 PM EDT Authorizing ProviderResult TypeResult StatusGrwisam RODGERS ORDERABLESFinal ResultPerforming OrganizationAddressCity/State/ZIP CodePhone Number TR[facility] from Last 3 Months Additional Health Concerns Active ProblemsNoted DateDiagnosed DateAutogenerated Cqsjoho0512/06/2024 Insurance Care Teams Team MemberRelationshipSpecialtyStart DateEnd Date Charli Castillo MD [address] [place] [address] PCP - NyukfapMyazhrubir27/19/25 Jerry Pina Vascular Ilvpfpj82/29/25
--- OUTSIDE RECORDS SUMMARY | 2025-04-08 19:28 | XMS_ITS | Clinical Summary ---
Author Organization [facility] Address [address] [place] [address] Care Team Providers Care Sand Wheeler Name Role Phone Hermilo Borrero MD Primary Care Provider [phone] Yessi Luna SALES SERVICE REP Unavailable [phone] Allergies No known active allergies Medications MedicationSigDispense QuantityRefillsLast FilledStart DateEnd DateStatus Buprenorphine HCl-Naloxone HCl (Suboxone) 8-2 MG SL film 5Active traZODone (Desyrel) 50 MG tablet Take 50-100 mg by mouth at ugajpta09/03/2024Active nicotine (Nicoderm, Step 3) 7 MG/24HR patch Indications:Nicotine dependence, cigarettes, uncomplicatedPlace 1 patch over 24 hours on the skin 1 (one) time each day at the same time 14 patch 5Active atorvastatin (Lipitor) 40 MG tablet Take 40 mg by mouth in the kcaqeiy88/12/2025Active clopidogrel (Plavix) 75 MG tablet Take 75 [...] AM EDT): Currently taking suboxone Cont with Mogi Cigarette nicotine dependence without tgzakvfzbpom19/07/2025 Assessment & Plan (07/16/2024 4:05 PM EDT): Prior to vascular surgery 0.5-1ppd, now is doing 4 cigs daily Patch is 14mg patch Right inguinal naccjl0804/25/2024 Assessment & Plan (10/22/2024 6:48 PM EDT): [...] flag sxs to monitor Abnormal ultrasound of jnambc4904/25/2024Iliac artery occlusion, right04/25/2024 Primary jttfhluefwvh69/07/2025 Assessment & Plan (10/22/2024 6:47 PM EDT): [...] Plan (04/17/2024 4:06 PM EST): Follows [facility] there placed pt on Losartan- hydrochlorothiazide [...] GOAL 6-8 hours of sleep per night. Lplymkg5904/17/2024Screening for malignant neoplasm of colon04/17/2024 Assessment & [...] DateResolved DateScreening for hyperlipidemia Screening for diabetes bjuxqyco31 Family History Medical HistoryRelationNameCommentsHypertensionMotherMomRelationNameStatus CommentsMotherMomAlive Social History Tobacco UseTypesPacks/DayYears UsedDateSmoking Tobacco: Every VnvMbartlvmtf218 Smokeless Tobacco: Never Tobacco Cessation:Ready to Q uit: Not Asked; Counseling Given: Not Answered Alcohol UseStandard Drinks/WeekCommentsYes0 (1 standard drink = 0.6 oz pure alcohol)Sex and Gender InformationValueDate RecordedSex Assigned at BirthNot on fileLegal SqiFjoz7406/23/2022 6:43 PM EDTGender IdentityNot on fileSexual OrientationNot on file Last Filed Vital Signs Vital SignReadingTime TakenCommentsBlood Jdztumdn907/7807 2:53 PM EDT Nmfdi462710/22/2024 2:53 PM JUKNiegfxqhwxi42.6 ??C (97.8 ??F)10/22/2024 2:53 PM EDTRespiratory Bgws221710/22/2024 2:53 PM EDTOxygen Phzmytzjpn70%10/22/2024 2:53 PM EDTInhaled Oxygen Concentration--Dcyfth13 kg (172 lb)10/22/2024 2:53 PM EDT Wgeimg696.8 cm (5' 10 )09/06/2024 3:12 PM EDTBody Mass Index24.68009/06/2024 3:12 PM EDT Plan of Treatment Not on file Insurance Care Teams Team MemberRelationshipSpecialtyStart DateEnd Date Hermilo Borrero MD PCP - GeneralFamily Fogovjhz36/4/24 Yessi Luna NP Nurse PractitionerFamily Uzxitznj61/4/24
--- OUTSIDE RECORDS SUMMARY | 2025-04-08 19:28 | XMS_ITS | Encounter Summary ---
Author Organization [employer] s tem Address [id number] [address] [place] [address] Care Team Providers Care Tractor Driver Teamster Name Role Phone Lesley Castillo Primary Care Provider [phone] Encounter Details DateTypeDepartmentCare Team (Latest Contact Info)Mxnoppqdnnc14/19/2025Travel Social History Tobacco UseTypesPacks/DayYears UsedDateSmoking Tobacco: Every DayCigarettes0.530 Passive Smoke Exposure: NeverSmokeless Tobacco: Never Comments:Decreased to 6 ciga rettes a day Alcohol UseStandard Drinks/NtczFfvuaemaYvx98 (1 standard drink = 0.6 oz pure alcohol)2 shots per dayAUDIT-CAnswerDate RecordedQ1: How often do you have a drink containing alcohol?4 or more times a week03/20/2025verage Number of DrinksNot on file03/20/2025Frequency of Binge DrinkingNot on file03/20/2025 ChildcareAnswerDate SzezyisiXfkmolhayYyxrgqq66/12/2019EmploymentAnswerDate AbatmvdiTkaggxixyfTsowktv50/12/2019Hunger ScreeningAnswerDate RecordedWithin the past 12 months we [...] Plan of Treatment DateTypeDepartmentCare Team (Latest Contact Info)Nsutttnfxag68/30/2025 12:15 PM ESTHospital Encounter [facility] [address] [place] [address] [place] [address] [place] [address] [place] [address] 04/09/2025 12:15 PM EST - 04/09/2025 2:15 PM ESTSurgery [facility] [address] [place] [address] [place] [address] [place] [address] [place] [address] DAVINCI REPAIR HERNIA INGUINALNamePriorityAssociated DiagnosesDate/TimeDAVINCI REPAIR HERNIA INGUINAL INGUINAL HERNIA RIGHT 04/09/2025 12:15 PM ESTdocumented as of this encounter Goals GoalPatient Goal TypeAssociated ProblemsRecent ProgressPatient-Stated?Author Autogenerated Goal Care PlanAutogenerated Reena Griselda Adocumented as of this encounter Visit Diagnoses Not on filedocumented in this encounter Additional Health Concerns Active ProblemsNoted DateDiagnosed DateAutogenerated Ovyngnq9912/06/2024documented as of this encounter Care Teams Team MemberRelationshipSpecialtyStart DateEnd Date Charli Castillo MD [address] [place] [address] PCP - GwhiiaoRfnbdfemgr15/19/25 Jerry Pina Vascular Kadmhop08/29/25documented as of this encounter
--- OUTSIDE RECORDS SUMMARY | 2025-04-08 19:28 | XMS_ITS | Clinical Summary ---
Author Organization [facility] Address [address] [place] [address] Care Team Providers Care Time Broker Name Role Phone Theo Brooks Jr. Primary Care Provider Domingo Dallas Unavailable [phone] Allergies No known active allergies Medications MedicationSigDispense [...] RecordedNational Score (1-100), lower number is lower eoek573410/02/2024State Score (1-10), lower number is lower risk6 10/02/2024Data from: https://www.neighborhoodatlas.medicine.[facility]/. Last address used for [address]/02/2024Sex and Gender Information ValueDate RecordedSex Assigned at BirthNot on fileLegal OjdOxrx7106/07/2014 2:50 PM ESTGender IdentityNot on fileSexual OrientationNot on file Last Filed Vital Signs Vital SignReadingTime TakenCommentsBlood Xnprmeig496/75010/02/2024 11:26 AM EDT Ntbjo594510/02/2024 11:26 AM EDTTemperature--Respiratory Rate--Oxygen Saturation-- Inhaled Oxygen Concentration--Rxuzwv57.8 kg (173 lb 11.6 oz)10/02/2024 11:26 AM UPSHigpzh359.8 cm (5' 10 )10/02/2024 11:26 AM EDTBody Mass Index24.9310/02/2024 11:26 AM EDT Plan of Treatment Health MaintenanceDue DateLast DoneCommentsAnxiety Meyfqwqnq22/16/1990Depression Vfwqskyyp77/16/1990HIV Xlnlsewah56/16/1990Hepatitis C Dteyxiglp82/16/1990 DTaP,Tdap,Td Vaccine (1 - Tdap)07/25/1990Hepatitis B Vaccine (1 of 3 - 19+ 3- dose series)07/25/1990Pneumococcal Vaccine: 50+ (1 of 2 - PCV)07/25/1990Lipid Pbnhwvoay70/16/2007CT Xjnmkompozmb58/16/2017Cologuard (FIT-DNA)07/25/2016 Lkdsccthhah46/16/2017Colorectal Cancer Jndzqyzzz29/16/2017Fecal Occult Blood 07/25/20163456Snyfbgnyxpylk77/16/2017Shingrix Vaccine (1 of 2)2Covid-19 Vaccine (1 - 2025-26 season)2024Influenza Vaccine (#1)2024Diabetes Jlvvixzze92RSV Vaccine (1 - 1-dose 75+ series)07/25/2046 Insurance Care Teams Team MemberRelationshipSpecialtyStart DateEnd Theo Brooks Jr. [facility] - [facility]/07/14 Domingo Del Rosario [address] [address] General Surgery09/06/24
== END 2025-04-08 19:25 | disposition home or self-care (01) ==
PROVIDERS: PCP Family Medicine; Visit Provider Family Medicine
DX: R79.89 Other specified abnormal findings of blood chemistry (principal); K85.90 Acute pancreatitis without necrosis or infection, unspecified
CPT/HCPCS: 76705